=== PATIENT | male | born 1960 | race Caucasian/White ===

== ENCOUNTER 2018-05-31 01:42 | Inpatient (IN) | payer OTHER ==
[~2018-05-31] VITALS: Ht 167.6 cm; Wt 71.8 kg
[2018-05-31] MEDS ORDERED: IPRATRPIUM/ALBUTEROL 0.5/2.5MG 3 ML NEBU. NEB ONE (02:00)
--- NOTE | 2018-05-31 02:03 | PHYS DOC ---
Past Medical History Past Medical History: Anemia, CHF, Hypertension Smoking: Cigarettes, 1 Pack Per Day Alcohol Use: Rarely Drug Use: None Adult General Chief Complaint Chief Complaint: SHORTNESS OF BREATH HPI HPI Patient is a 58 year old male who presents with shortness of breath. This started approximately an hour prior to calling 911. 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 Patient recently was seen by his primary care physician in [place] who diagnosed him with congestive heart failure started him on diuretic as well as beta jocelyn. He was also noted to be anemic at that time and was started on iron supplementation. Patient was brought in by EMS after receiving breathing treatment.[] Review of Systems Review of Systems Constitutional: Denies fever or chills [] Eyes: Denies change in visual acuity, redness, or eye pain [] HENT: Denies nasal congestion or sore throat [] Respiratory: See history of present illness[] Cardiovascular: No chest pain or palpitations[] GI: Denies abdominal pain, nausea, vomiting, bloody stools or diarrhea [] : Denies dysuria or hematuria [] Musculoskeletal: Denies back pain or joint pain [] Integument: Denies rash or skin lesions [] Neurologic: Denies headache, focal weakness or sensory changes [] Endocrine: Denies polyuria or polydipsia [] All other systems were reviewed and found to be within normal limits, except as documented in this note. Current Medications Current Medications Current Medications Medications (Trade) Dose Ordered Sig/Lenny Start Time Stop Time Status Last Admin Dose Admin Albuterol/ Ipratropium (Duoneb) 3 ml 1X ONCE 05/31/18 02:00 05/31/18 02:12 DC 05/31/18 02:03 3 ML Aspirin (Children'S Aspirin) 324 mg 1X ONCE 05/31/18 03:30 05/31/18 03:31 DC 05/31/18 04:26 324 MG Furosemide (Lasix) 20 mg 1X ONCE 05/31/18 02:15 05/31/18 02:16 DC 05/31/18 03:14 20 MG Info (CONTRAST GIVEN -- Rx MONITORING) 1 each PRN DAILY PRN 05/31/18 04:00 06/02/18 03:59 Iohexol (Omnipaque 350 Mg/ml) 90 ml 1X ONCE 05/31/18 04:00 05/31/18 04:01 DC 05/31/18 04:08 90 ML Allergies Allergies Allergies Coded Allergies Type Severity Reaction Last Updated Verified No Known Drug Allergies 05/31/18 No Physical Exam Physical Exam Constitutional: Well developed, well nourished, no acute distress, non-toxic appearance. [] HENT: Normocephalic, atraumatic, bilateral external ears normal, oropharynx moist, no oral exudates, nose normal. [] Eyes: PERRLA, EOMI, conjunctiva normal, no discharge. [] Neck: Normal range of motion, no tenderness, supple, no stridor. [] Cardiovascular:Heart rate regular rhythm, no murmur [] Lungs & Thorax: Bilateral red sounds with diminished airflow[] Abdomen: Bowel sounds normal, soft, no tenderness, no masses, no pulsatile masses. Rectal exam performed showed no external hemorrhoids, brown stool that was sent for laboratory analysis [] Skin: Warm, dry, no erythema, no rash. [] Back: No tenderness, no CVA tenderness. [] Extremities: No tenderness, no cyanosis, no clubbing, ROM intact, pretibial edema bilaterally. [] Neurologic: Alert and oriented X 3, normal motor function, normal sensory function, no focal deficits noted. [] Psychologic: Affect normal, judgement normal, mood normal. [] Current Patient Data Vital Signs Vital Signs Date Time Temp Pulse Resp B/P (MAP) Pulse Ox O2 Delivery O2 Flow Rate FiO2 05/31/18 04:44 77 175/76 (109) 99 Nasal Cannula 4.0 05/31/18 03:46 97.5 97.5 05/31/18 03:17 16 Lab Values Laboratory Tests Test 05/31/18 02:07 05/31/18 02:40 Prothrombin Time 13.6 SEC (11.7-14.0) Prothrombin Time INR 1.1 (0.8-1.1) White Blood Count 10.1 x10^3/uL (4.0-11.0) Red Blood Count 4.13 x10^6/uL (4.30-5.70) L Hemoglobin 8.1 g/dL (13.0-17.5) L Hematocrit 27.7 % (39.0-53.0) L Mean Corpuscular Volume 67 fL (79-100) L Mean Corpuscular Hemoglobin 20 pg (25-35) L Mean Corpuscular Hemoglobin Concent 29 g/dL (31-37) L Red Cell Distribution Width 22.7 % (11.5-14.5) H Platelet Count 478 x10^3/uL (140-400) H Neutrophils (%) (Auto) 74 % (31-73) H Lymphocytes (%) (Auto) 15 % (24-48) L Monocytes (%) (Auto) 9 % (0-9) Eosinophils (%) (Auto) 1 % (0-3) Basophils (%) (Auto) 1 % (0-3) Neutrophils # (Auto) 7.4 x10^3uL (1.8-7.7) Lymphocytes # (Auto) 1.5 x10^3/uL (1.0-4.8) Monocytes # (Auto) 0.9 x10^3/uL (0.0-1.1) Eosinophils # (Auto) 0.1 x10^3/uL (0.0-0.7) Basophils # (Auto) 0.1 x10^3/uL (0.0-0.2) Platelet Estimate Pending D-Dimer (Mercy) 1.33 ug/mlFEU (0.00-0.50) H Sodium Level 142 mmol/L (136-145) Potassium Level 3.8 mmol/L (3.5-5.1) Chloride Level 106 mmol/L (98-107) Carbon Dioxide Level 25 mmol/L (21-32) Anion Gap 11 (6-14) Blood Urea Nitrogen 13 mg/dL (8-26) Creatinine 1.0 mg/dL (0.7-1.3) Estimated GFR (Cockcroft-Gault) 77.0 BUN/Creatinine Ratio 13 (6-20) Glucose Level 114 mg/dL (70-99) H Calcium Level 9.8 mg/dL (8.5-10.1) Total Bilirubin 0.2 mg/dL (0.2-1.0) Aspartate Amino Transferase (AST) 18 U/L (15-37) Alanine Aminotransferase (ALT) 25 U/L (16-63) Alkaline Phosphatase 73 U/L (46-116) Troponin I Quantitative 0.088 ng/mL (0.000-0.055) BB-Ciw-D-Type Natriuretic Peptide 1651 pg/mL (0-124) H Total Protein 7.5 g/dL (6.4-8.2) Albumin 3.5 g/dL (3.4-5.0) Albumin/Globulin Ratio 0.9 (1.0-1.7) L Laboratory Tests 05/31/18 02:40 Laboratory Tests 05/31/18 02:40 EKG EKG EKG shows a sinus rhythm at 76 bpm, left axis deviation, QTC of 473 ms, right bundle branch block. No ST elevations. No old EKG available for comparison. This was interpreted by me at 0 233[] Radiology/Procedures Radiology/Procedures Chest x-ray shows increased markings consistent with congestive heart failure, no infiltrate, some blunting of right greater than left costophrenic angle, no pneumothorax[] Course & Med Decision Making Course & Med Decision Making Pertinent Labs and Imaging studies reviewed. (See chart for details) ED course: Patient arrived, was placed in bed, in tolerated exam well. He was given a breathing treatment which didn't improve his oxygenation however he was still requiring supplemental oxygen. 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 He was additionally given aspirin. Discussion with the patient about need for blood transfusion given his anemia along with the elevated troponin, patient was refusing the blood transfusion noting that he had a follow -up appointment with his primary care physician on June 08, 2018.[] Dragon Disclaimer Dragon Disclaimer This electronic medical record was generated, in whole or in part, using a voice recognition dictation system. Departure Departure Impression: Primary Impression: Congestive heart failure Additional Impressions: COPD (chronic obstructive pulmonary disease) Non-STEMI (non-ST elevated myocardial infarction) Anemia Disposition: ADMITTED INPATIENT Admitting Physician: Other Condition: IMPROVED Problem Qualifiers Primary Impression: Congestive heart failure Heart failure type: unspecified Heart failure chronicity: unspecified Qualified Codes: I50.9 - Heart failure, unspecified Additional Impressions: COPD (chronic obstructive pulmonary disease) COPD type: unspecified COPD Qualified Codes: J44.9 - Chronic obstructive pulmonary disease, unspecified Anemia Anemia type: unspecified type Qualified Codes: D64.9 - Anemia, unspecified MASHA THOMAS DO May 31, 2018 02:03
[2018-05-31] MEDS ORDERED: FUROSEMIDE 20 MG/2 ML VIAL. IVP ONE (02:15)
[2018-05-31 02:53] LABS: BASO # 0.1 x10^3/uL (0.0-0.2); BASO % 1 % (0-3); EOS # 0.1 x10^3/uL (0.0-0.7); EOS % 1 % (0-3); HEMATOCRIT 27.7 % (39.0-53.0); HEMOGLOBIN 8.1 g/dL (13.0-17.5); LYMPH # 1.5 x10^3/uL (1.0-4.8); LYMPH % 15 % (24-48); MEAN CORPUSCULAR HEMOGLOBIN 20 pg (25-35); MEAN CORPUSCULAR HGB CONC 29 g/dL (31-37); MEAN CORPUSCULAR VOLUME 67 fL (79-100); MONO # 0.9 x10^3/uL (0.0-1.1); MONO % 9 % (0-9); NEUT # 7.4 x10^3uL (1.8-7.7); NEUT % 74 % (31-73); PLATELET COUNT 478 x10^3/uL (140-400); RED BLOOD COUNT 4.13 x10^6/uL (4.30-5.70); RED CELL DISTRIBUTION WIDTH 22.7 % (11.5-14.5); WHITE BLOOD COUNT 10.1 x10^3/uL (4.0-11.0)
[2018-05-31 03:05] LABS: CALCIUM 9.8 mg/dL (8.5-10.1); POTASSIUM 3.8 mmol/L (3.5-5.1)
[2018-05-31 03:11] LABS: ALBUMIN 3.5 g/dL (3.4-5.0); ALBUMIN/GLOBULIN RATIO 0.9 (1.0-1.7); TOTAL BILIRUBIN 0.2 mg/dL (0.2-1.0); TOTAL PROTEIN 7.5 g/dL (6.4-8.2)
[2018-05-31] MEDS ORDERED: ASPIRIN CHEWABLE 81 MG TABLET. PO ONE (03:30)
[2018-05-31 03:44] LABS: PROTHROMBIN TIME PATIENT 13.6 SEC (11.7-14.0)
[2018-05-31] MEDS ORDERED: IOHEXOL 350 MG/ML 100 ML VIAL. IV ONE (04:00)
[2018-05-31] MEDS ORDERED: CONTRAST GIVEN. MC PRN (04:00)
[2018-05-31] MEDS ORDERED: METO-239 PO (04:34)
[2018-05-31] MEDS ORDERED: LISI-334 PO (04:34)
[2018-05-31] MEDS ORDERED: HYDR12.58 PO (04:34)
[2018-05-31] MEDS ORDERED: ESOM20CA PO (04:34)
[2018-05-31 05:06] LABS: FECAL OB PT NEGATIVE (NEG)
--- NOTE | 2018-05-31 05:11 | RAD ---
CTA Chest with contrast: Clinical History: Elevated d-dimer and Shortness of breath. Axial helical images of the chest were obtained after the administration of 90 cc of IV Omni 350 and timed appropriately for a pulmonary arterial study. Conventional axial reconstruction was performed in addition to coronal, sagittal and bilateral oblique MIP (maximum intensity projection). This study was ordered to detect possible pulmonary embolism. There are no filling defects to suggest pulmonary embolism. There is patchy opacities in the lung bases posteriorly and there is mild perihilar opacities. There are multiple small hilar lymph nodes bilaterally. The thoracic aorta appears normal. There is a moderate to large hiatal hernia. Impression: 1. No evidence of pulmonary embolism. 2. Mild bilateral infiltrates could be discoid atelectasis or pneumonia. 3. Mild hilar lymphadenopathy likely reactive. PQRS Compliance Statement: One or more of the following individualized dose reduction techniques were utilized for this examination: 1. Automated exposure control 2. Adjustment of the mA and/or kV according to patient size 3. Use of iterative reconstruction technique Electronically signed by: Jairo Cordon III, MD (05/31/2018 5:06 AM) [id number]
[2018-05-31] MEDS ORDERED: ONDANSETRON PF 4 MG/2 ML VIAL. IV PRN (05:30)
[2018-05-31] MEDS ORDERED: NITROGLYCERIN SUBLINGUAL 0.4 MG BOTTLE OF 25. SL PRN (05:30)
[2018-05-31] MEDS ORDERED: ACETAMINOPHEN 325 MG TABLET. PO PRN (05:30)
[2018-05-31 05:52] LABS: PLT ESTIMATE INCREASED (ADEQUATE)
[2018-05-31 05:53] LABS: MICROCYTOSIS MOD
[2018-05-31 05:54] LABS: SPHEROCYTES FEW
[2018-05-31 05:55] LABS: STOMATOCYTES OCC
[2018-05-31 06:30] VITALS: BP 161/80
[2018-05-31] MEDS ORDERED: METO50TA6 PO (06:59)
--- NOTE | 2018-05-31 07:24 | EKG ---
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
--- NOTE | 2018-05-31 07:56 | PDOC1 ---
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 This started approximately an hour prior to calling 911. Patient recently was seen by his primary care physician in [place] who diagnosed him with congestive heart failure started him on diuretic as well as beta jocelyn. He was also treated for pneumonia. He was also noted to be anemic at that time and was started on iron supplementation which caused him severe GI discomfort, so he has since stopped. Patient was brought in by EMS after receiving breathing treatment. D dimer was elevated, underwent a CTPA in ED showing no evidence of pulmonary embolism, mild bilateral infiltrates could be discoid atelectasis or pneumonia, and mild hilar lymphadenopathy likely reactive. Labs significant for Hb of 8.1, BNP 1651, Trop 0.088. Blood pressure 170/72. He was type and screened and admitted for likely new onset CHF. Past Medical History Cardiovascular: HTN Pulmonary: No pertinent hx GI: No pertinent hx Heme/Onc: Anemia NOS Hepatobiliary: No pertinent hx Psych: No pertinent hx Rheumatologic: No pertinent hx Infectious disease: No pertinent hx ENT: No pertinent hx Renal/: No pertinent hx Endocrine: No pertinent hx Dermatology: No pertinent hx Family History Family History: Coronary Artery Disease, Heart Disease, High Cholestrol, Hypertension Family History: Parent (Mother - CAD s/p CABG, sister - CAD) Social History Smoke: No ALCOHOL: none Drugs: None Current Problem List Problem List Problems Medical Problems: (1) Anemia Status: Acute (2) Congestive heart failure Status: Acute (3) COPD (chronic obstructive pulmonary disease) Status: Acute (4) Non-STEMI (non-ST elevated myocardial infarction) Status: Acute Current Medications Current Medications Current Medications Albuterol/ Ipratropium (Duoneb) 3 ml 1X ONCE NEB Last administered on at 02:03; Start 05/31/18 at 02:00; Stop 05/31/18 at 02:12; Status DC Furosemide (Lasix) 20 mg 1X ONCE IVP Last administered on 05/31/18at 03:14; Start 05/31/18 at 02:15; Stop 05/31/18 at 02:16; Status DC Aspirin (Children'S Aspirin) 324 mg 1X ONCE PO Last administered on 05/31/18at 04:26; Start 05/31/18 at 03:30; Stop 05/31/18 at 03:31; Status DC Iohexol (Omnipaque 350 Mg/ml) 90 ml 1X ONCE IV Last administered on 05/31/18at 04:08; Start 05/31/18 at 04:00; Stop 05/31/18 at 04:01; Status DC Info (CONTRAST GIVEN -- Rx MONITORING) 1 each PRN DAILY PRN MC SEE COMMENTS; Start 05/31/18 at 04:00; Stop 06/02/18 at 03:59 Ondansetron HCl (Zofran) 4 mg PRN Q8HRS PRN IV NAUSEA/VOMITING; Start 05/31/18 at 05:30; Stop 06/01/18 at 05:29 Acetaminophen (Tylenol) 650 mg PRN Q4HRS PRN PO FEVER; Start 05/31/18 at 05:30 ; Stop 06/01/18 at 05:29 Nitroglycerin (Nitrostat) 0.4 mg PRN Q5MIN PRN SL CHEST PAIN; Start 05/31/18 at 05:30; Stop 06/01/18 at 05:29 Active Scripts Active Reported Metoprolol Tartrate 50 Mg Tablet 1 Tab PO DAILY Lisinopril 20 Mg Tablet 1 Tab PO DAILY Nexium Capsule (Esomeprazole Magnesium) 20 Mg Capsule.dr 20 Mg PO BID Hydrochlorothiazide Tablet (Hydrochlorothiazide) 12.5 Mg Tablet 12.5 Mg PO DAILY Allergies Allergies: Coded Allergies: No Known Drug Allergies (Unverified , 05/31/18) ROS General: YES: Fatigue, Malaise; No: Chills, Night Sweats, Appetite, Other PSYCHOLOGICAL ROS: No: Anxiety, Behavioral Disorder, Concentration difficultie , Decreased libido, Depression, Disorientation, Hallucinations, Hostility, Irritablity, Memory difficulties, Mood Swings, Obsessive thoughts, Physical abuse, Sexual abuse, Sleep disturbances, Suicidal ideation, Other Eyes: No Blurry vision, No Decreased vision, No Double vision, No Dry eyes, No Excessive tearing, No Eye Pain, No Itchy Eyes, No Loss of vision, No Photophobia , No Scotomata, No Uses contacts, No Uses glasses, No Other HEENT: No: Heacaches, Visual Changes, Hearing change, Nasal congestion, Nasal discharge, Oral lesions, Sinus pain, Sore Throat, Epistaxis, Sneezing, Snoring, Tinnitus, Vertigo, Vocal changes, Other ALLERGY AND IMMUNOLOGY: No: Hives, Insect Bite Sensitivity, Itchy/Watery Eyes, Nasal Congestion, Post Nasal Drip, Seasonal Allergies, Other Hematological and Lymphatic: No: Bleeding Problems, Blood Clots, Blood Transfusions, Brusing, Night Sweats, Pallor, Swollen Lymph Nodes, Other ENDOCRINE: No: Breast Changes, Galactorrhea, Hair Pattern Changes, Hot Flashes , Malaise/lethargy, Mood Swings, Palpitations, Polydipsia/polyuria, Skin Changes , Temperature Intolerance, Unexpected Weight Changes, Other Breast: No New/Changing Breast Lumps, No Nipple changes, No Nipple discharge, No Other Respiratory: YES: Cough, Shortness of breath; No: Hemoptysis, Orthopnea, Pleuritic Pain, SOB with excertion, Sputum Changes , Stridor, Tachypnea, Wheezing, Other Cardiovascular: yes Chest Pain, yes Orthopnea, yes Paroxysmal Noc. Dyspnea, yes Edema; No Palpitations, No Lt Headedness, No Other Gastrointestinal: No Nausea, No Vomiting, No Abdominal Pain, No Diarrhea, No Constipation, No Melena, No Hematochezia, No Other Genitourinary: No Dysuria, No Frequency, No Incontinence, No Hematuria, No Retention, No Discharge, No Urgency, No Pain, No Flank Pain, No Other, No , No , No , No , No , No , No Musculoskeletal: No Gait Disturbance, No Joint Pain, No Joint Stiffness, No Joint Swelling, No Muscle Pain, No Muscular Weakness, No Pain In:, No Swelling In:, No Other Neurological: No Behavorial Changes, No Bowel/Bladder ControlChng, No Confusion , No Dizziness, No Gait Disturbance, No Headaches, No Impaired Coord/balance, No Memory Loss, No Numbness/Tingling, No Seizures, No Speech Problems, No Tremors, No Visual Changes, No Weakness, No Other Skin: No Dry Skin, No Eczema, No Hair Changes, No Lumps, No Mole Changes, No Mottling, No Nail Changes, No Pruritus, No Rash, No Skin Lesion Changes, No Other, No Acne Physical Exam General: Alert, Oriented X3, Cooperative, No acute distress HEENT: Atraumatic, PERRLA, EOMI, Mucous membr. moist/pink Lungs: Other (Bibasilar crackles) Heart: S1S2, RRR, no gallops, no murmurs Abdomen: Normal bowel sounds, Soft, No tenderness, No hepatosplenomegaly, No masses Rectal Exam: not examined Extremities: No clubbing, No cyanosis, No edema, Normal pulses, No tenderness/ swelling Skin: No rashes, No breakdown, No significant lesion Neuro: Normal gait, Normal speech, Strength at 5/5 X4 ext, Normal tone, Sensation intact, Cranial nerves 3-12 NL, Reflexes 2+ Psych/Mental Status: Mental status NL, Mood NL Vitals Vitals Vital Signs Date Time Temp Pulse Resp B/P (MAP) Pulse Ox O2 Delivery O2 Flow Rate FiO2 05/31/18 06:20 Nasal Cannula 4.0 05/31/18 05:50 75 165/64 (97) 99 05/31/18 03:46 97.5 97.5 05/31/18 03:17 16 Labs Labs Laboratory Tests Test 05/31/18 02:07 05/31/18 02:40 05/31/18 04:40 Prothrombin Time 13.6 SEC (11.7-14.0) Prothromb Time International Ratio 1.1 (0.8-1.1) White Blood Count 10.1 x10^3/uL (4.0-11.0) Red Blood Count 4.13 x10^6/uL (4.30-5.70) Hemoglobin 8.1 g/dL (13.0-17.5) Hematocrit 27.7 % (39.0-53.0) Mean Corpuscular Volume 67 fL (79-100) Mean Corpuscular Hemoglobin 20 pg (25-35) Mean Corpuscular Hemoglobin Concent 29 g/dL (31-37) Red Cell Distribution Width 22.7 % (11.5-14.5) Platelet Count 478 x10^3/uL (140-400) Neutrophils (%) (Auto) 74 % (31-73) Lymphocytes (%) (Auto) 15 % (24-48) Monocytes (%) (Auto) 9 % (0-9) Eosinophils (%) (Auto) 1 % (0-3) Basophils (%) (Auto) 1 % (0-3) Neutrophils # (Auto) 7.4 x10^3uL (1.8-7.7) Lymphocytes # (Auto) 1.5 x10^3/uL (1.0-4.8) Monocytes # (Auto) 0.9 x10^3/uL (0.0-1.1) Eosinophils # (Auto) 0.1 x10^3/uL (0.0-0.7) Basophils # (Auto) 0.1 x10^3/uL (0.0-0.2) Platelet Estimate Increased (ADEQUATE) Large Platelets Occ Microcytosis Mod Macrocytosis Slight Spherocytes Few Stomatocytes Occ D-Dimer ([facility]cy) 1.33 ug/mlFEU (0.00-0.50) Sodium Level 142 mmol/L (136-145) Potassium Level 3.8 mmol/L (3.5-5.1) Chloride Level 106 mmol/L (98-107) Carbon Dioxide Level 25 mmol/L (21-32) Anion Gap 11 (6-14) Blood Urea Nitrogen 13 mg/dL (8-26) Creatinine 1.0 mg/dL (0.7-1.3) Estimated GFR (Cockcroft-Gault) 77.0 BUN/Creatinine Ratio 13 (6-20) Glucose Level 114 mg/dL (70-99) Calcium Level 9.8 mg/dL (8.5-10.1) Total Bilirubin 0.2 mg/dL (0.2-1.0) Aspartate Amino Transf (AST/SGOT) 18 U/L (15-37) Alanine Aminotransferase (ALT/SGPT) 25 U/L (16-63) Alkaline Phosphatase 73 U/L (46-116) Troponin I Quantitative 0.088 ng/mL (0.000-0.055) GF-Zxt-H-Type Natriuretic Peptide 1651 pg/mL (0-124) Total Protein 7.5 g/dL (6.4-8.2) Albumin 3.5 g/dL (3.4-5.0) Albumin/Globulin Ratio 0.9 (1.0-1.7) Stool Occult Blood Negative (NEG) Laboratory Tests Test 05/31/18 02:07 05/31/18 02:40 05/31/18 04:40 Prothrombin Time 13.6 SEC (11.7-14.0) Prothromb Time International Ratio 1.1 (0.8-1.1) White Blood Count 10.1 x10^3/uL (4.0-11.0) Red Blood Count 4.13 x10^6/uL (4.30-5.70) Hemoglobin 8.1 g/dL (13.0-17.5) Hematocrit 27.7 % (39.0-53.0) Mean Corpuscular Volume 67 fL (79-100) Mean Corpuscular Hemoglobin 20 pg (25-35) Mean Corpuscular Hemoglobin Concent 29 g/dL (31-37) Red Cell Distribution Width 22.7 % (11.5-14.5) Platelet Count 478 x10^3/uL (140-400) Neutrophils (%) (Auto) 74 % (31-73) Lymphocytes (%) (Auto) 15 % (24-48) Monocytes (%) (Auto) 9 % (0-9) Eosinophils (%) (Auto) 1 % (0-3) Basophils (%) (Auto) 1 % (0-3) Neutrophils # (Auto) 7.4 x10^3uL (1.8-7.7) Lymphocytes # (Auto) 1.5 x10^3/uL (1.0-4.8) Monocytes # (Auto) 0.9 x10^3/uL (0.0-1.1) Eosinophils # (Auto) 0.1 x10^3/uL (0.0-0.7) Basophils # (Auto) 0.1 x10^3/uL (0.0-0.2) Platelet Estimate Increased (ADEQUATE) Large Platelets Occ Microcytosis Mod Macrocytosis Slight Spherocytes Few Stomatocytes Occ D-Dimer (Mercy) 1.33 ug/mlFEU (0.00-0.50) Sodium Level 142 mmol/L (136-145) Potassium Level 3.8 mmol/L (3.5-5.1) Chloride Level 106 mmol/L (98-107) Carbon Dioxide Level 25 mmol/L (21-32) Anion Gap 11 (6-14) Blood Urea Nitrogen 13 mg/dL (8-26) Creatinine 1.0 mg/dL (0.7-1.3) Estimated GFR (Cockcroft-Gault) 77.0 BUN/Creatinine Ratio 13 (6-20) Glucose Level 114 mg/dL (70-99) Calcium Level 9.8 mg/dL (8.5-10.1) Total Bilirubin 0.2 mg/dL (0.2-1.0) Aspartate Amino Transf (AST/SGOT) 18 U/L (15-37) Alanine Aminotransferase (ALT/SGPT) 25 U/L (16-63) Alkaline Phosphatase 73 U/L (46-116) Troponin I Quantitative 0.088 ng/mL (0.000-0.055) VI-Bcu-I-Type Natriuretic Peptide 1651 pg/mL (0-124) Total Protein 7.5 g/dL (6.4-8.2) Albumin 3.5 g/dL (3.4-5.0) Albumin/Globulin Ratio 0.9 (1.0-1.7) Stool Occult Blood Negative (NEG) Images Images CXR - no formal read CTPA - 1. No evidence of pulmonary embolism. 2. Mild bilateral infiltrates could be discoid atelectasis or pneumonia. 3. Mild hilar lymphadenopathy likely reactive. VTE Prophylaxis Ordered VTE Prophylaxis Devices: Yes VTE Pharmacological Prophylaxi: No Assessment/Plan Assessment/Plan A/P: Shortness of breath - likely from pulmonary edema, will diurese. Echo. Consult cardiology. Negative for PE Anemia - this appears acute. Check iron studies, type and screen. May be dilutional from fluid overload as well. Venofer x1. Stool occult was negative. Will check TSH, LDH Elevated fasting glucose - will screen for DM HTN - will cont lisinopril. CHF - acute diastolic chf by history this was just clinically diagnosed. Has stress testing years ago, but need ischemic w/u. Denies ETOH use or cocaine/ amphetamine use. Strong family h/o CAD. Diurese, ECHO, consult cardiology. His BB was metoprolol tartrate. I will not restart as this is not the correct treatment for CHF, when he is out of acute phase will start either toprol XL or Carvedilol. Statin, ASA, BEN as well. Elevated troponin - likely demand with acute CHF and anemia, however, he needs ischemic w/u FEN - Cardiac diet if ok with cardiology PPX - SCDs, heparin FULL CODE CVC for new onset CHF complicated by anemia, will be inpatient at least 2 midnights. ROMULO CASTRO MD May 31, 2018 07:56
--- NOTE | 2018-05-31 08:08 | RAD ---
Indication:Shortness of breath TECHNIQUE:Portable AP chest X-ray COMPARISON: None FINDINGS: Heart is top normal in size. Lungs are hyperinflated. Coarse interstitial opacities are seen. No focal consolidation. Moderate-sized sliding hiatal hernia. No pneumothorax or pleural effusion. Visualized bony thorax within normal limits. IMPRESSION: 1. Findings of COPD. Superimposed atypical/viral infection or chronic interstitial changes. 2. Moderate sliding hiatal hernia.w Electronically signed by: Dylan Faye DO (05/31/2018 8:03 AM) [facility]
[2018-05-31 10:00] VITALS: BP 147/71
[2018-05-31 11:43] LABS: LACTATE DEHYDROGENASE 246 U/L (85-227)
[2018-05-31 12:00] VITALS: BP 155/70
[2018-05-31] MEDS ORDERED: IRON SUCROSE COMPLEX 200 MG in IV NORMAL SALINE 100ML 100 ML IV ONE (12:00)
[2018-05-31] MEDS: LISINOPRIL 20 MG TABLET PO SCH (12:13)
--- NOTE | 2018-05-31 14:54 | PDOC2 ---
CONSULT Date of Consult Date of Consult DATE: 05/31/18 TIME: 14:43 Reason for Consult Reason for Consult: Shortness of breath Referring Physician Referring Physician: Dr. Escobar Identification/Chief Complaint Chief Complaint Shortness of breath Source Source: Chart review, Patient History of Present Illness Reason for Visit: The patient is a pleasant 58-year-old male reports episodes of shortness of breath over 2-3 hours prior to being seen in the emergency room last night. Patient's workup has included lab tests that showed anemia with a hemoglobin hematocrit of 8.1 and 27.7. His BNP was elevated at 1651 and a troponin minimally elevated at 0.097. After treatment overnight the patient is feeling better but is still somewhat short of breath. He denies chest pain, dizziness or lightheadedness. 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 Patient's d-dimer was elevated and he underwent a CTA of the chest that showed no evidence of pulmonary emboli but did show mild bilateral infiltrates. Initial blood pressure was elevated at 170/76. EKG showed no acute ischemic changes. Patient had previously been seen at his home in [place] 2-3 weeks ago and was treated for anemia, heart failure and possible pneumonia. Past Medical History Cardiovascular: HTN Pulmonary: No pertinent hx GI: No pertinent hx Heme/Onc: Anemia NOS Hepatobiliary: No pertinent hx Psych: No pertinent hx Rheumatologic: No pertinent hx Infectious disease: No pertinent hx ENT: No pertinent hx Renal/: No pertinent hx Endocrine: No pertinent hx Dermatology: No pertinent hx Past Surgical History Past Surgical History: No pertinent history Family History Family History: Coronary Artery Disease, Heart Disease, High Cholestrol, Hypertension Social History Social History: Parent (Mother - CAD s/p CABG, sister - CAD) <1 pack per day ALCOHOL: rare Drugs: None Current Problem List Problem List Problems Medical Problems: (1) Anemia Status: Acute (2) Congestive heart failure Status: Acute (3) COPD (chronic obstructive pulmonary disease) Status: Acute (4) Non-STEMI (non-ST elevated myocardial infarction) Status: Acute Current Medications Current Medications Current Medications Albuterol/ Ipratropium (Duoneb) 3 ml 1X ONCE NEB Last administered on at 02:03; Start 05/31/18 at 02:00; Stop 05/31/18 at 02:12; Status DC Furosemide (Lasix) 20 mg 1X ONCE IVP Last administered on 05/31/18at 03:14; Start 05/31/18 at 02:15; Stop 05/31/18 at 02:16; Status DC Aspirin (Children'S Aspirin) 324 mg 1X ONCE PO Last administered on 05/31/18at 04:26; Start 05/31/18 at 03:30; Stop 05/31/18 at 03:31; Status DC Iohexol (Omnipaque 350 Mg/ml) 90 ml 1X ONCE IV Last administered on 05/31/18at 04:08; Start 05/31/18 at 04:00; Stop 05/31/18 at 04:01; Status DC Info (CONTRAST GIVEN -- Rx MONITORING) 1 each PRN DAILY PRN MC SEE COMMENTS; Start 05/31/18 at 04:00; Stop 06/02/18 at 03:59 Ondansetron HCl (Zofran) 4 mg PRN Q8HRS PRN IV NAUSEA/VOMITING; Start 05/31/18 at 05:30; Stop 06/01/18 at 05:29 Acetaminophen (Tylenol) 650 mg PRN Q4HRS PRN PO FEVER; Start 05/31/18 at 05:30 ; Stop 06/01/18 at 05:29 Nitroglycerin (Nitrostat) 0.4 mg PRN Q5MIN PRN SL CHEST PAIN; Start 05/31/18 at 05:30; Stop 06/01/18 at 05:29 Lisinopril (Prinivil) 20 mg DAILY PO Last administered on 05/31/18at 12:13; Start 05/31/18 at 12:00 Pantoprazole Sodium (Protonix) 40 mg BIDAC PO ; Start 05/31/18 at 16:30 Furosemide (Lasix) 20 mg BID92 IVP ; Start 05/31/18 at 14:00 Iron Sucrose 200 mg/Sodium Chloride 110 ml @ 55 mls/hr 1X ONCE IV Last administered on 05/31/18at 11:38; Start 05/31/18 at 12:00; Stop 05/31/18 at 13:59 ; Status DC Active Scripts Active Reported Metoprolol Tartrate 50 Mg Tablet 1 Tab PO DAILY Lisinopril 20 Mg Tablet 1 Tab PO DAILY Nexium Capsule (Esomeprazole Magnesium) 20 Mg Capsule.dr 20 Mg PO BID Hydrochlorothiazide Tablet (Hydrochlorothiazide) 12.5 Mg Tablet 12.5 Mg PO DAILY Allergies Allergies: Coded Allergies: No Known Drug Allergies (Unverified , 05/31/18) ROS General: YES: Fatigue Respiratory: YES: Shortness of breath, SOB with excertion Physical Exam General: mild distress HEENT: Atraumatic Lungs: Other (decreased breath sounds) Heart: Regular rate Abdomen: Normal bowel sounds Vitals VITALS Vital Signs Date Time Temp Pulse Resp B/P (MAP) Pulse Ox O2 Delivery O2 Flow Rate FiO2 05/31/18 12:13 87 155/70 05/31/18 12:00 97.8 95 Nasal Cannula 2.0 97.8 05/31/18 03:17 16 Labs Labs Laboratory Tests Test 05/31/18 02:07 05/31/18 02:40 05/31/18 04:40 05/31/18 09:50 Prothrombin Time 13.6 SEC (11.7-14.0) Prothromb Time International Ratio 1.1 (0.8-1.1) White Blood Count 10.1 x10^3/uL (4.0-11.0) Red Blood Count 4.13 x10^6/uL (4.30-5.70) Hemoglobin 8.1 g/dL (13.0-17.5) Hematocrit 27.7 % (39.0-53.0) Mean Corpuscular Volume 67 fL (79-100) Mean Corpuscular Hemoglobin 20 pg (25-35) Mean Corpuscular Hemoglobin Concent 29 g/dL (31-37) Red Cell Distribution Width 22.7 % (11.5-14.5) Platelet Count 478 x10^3/uL (140-400) Neutrophils (%) (Auto) 74 % (31-73) Lymphocytes (%) (Auto) 15 % (24-48) Monocytes (%) (Auto) 9 % (0-9) Eosinophils (%) (Auto) 1 % (0-3) Basophils (%) (Auto) 1 % (0-3) Neutrophils # (Auto) 7.4 x10^3uL (1.8-7.7) Lymphocytes # (Auto) 1.5 x10^3/uL (1.0-4.8) Monocytes # (Auto) 0.9 x10^3/uL (0.0-1.1) Eosinophils # (Auto) 0.1 x10^3/uL (0.0-0.7) Basophils # (Auto) 0.1 x10^3/uL (0.0-0.2) Platelet Estimate Increased (ADEQUATE) Large Platelets Occ Microcytosis Mod Macrocytosis Slight Spherocytes Few Stomatocytes Occ D-Dimer ([facility]) 1.33 ug/mlFEU (0.00-0.50) Sodium Level 142 mmol/L (136-145) Potassium Level 3.8 mmol/L (3.5-5.1) Chloride Level 106 mmol/L (98-107) Carbon Dioxide Level 25 mmol/L (21-32) Anion Gap 11 (6-14) Blood Urea Nitrogen 13 mg/dL (8-26) Creatinine 1.0 mg/dL (0.7-1.3) Estimated GFR (Cockcroft-Gault) 77.0 BUN/Creatinine Ratio 13 (6-20) Glucose Level 114 mg/dL (70-99) Calcium Level 9.8 mg/dL (8.5-10.1) Total Bilirubin 0.2 mg/dL (0.2-1.0) Aspartate Amino Transf (AST/SGOT) 18 U/L (15-37) Alanine Aminotransferase (ALT/SGPT) 25 U/L (16-63) Alkaline Phosphatase 73 U/L (46-116) Troponin I Quantitative 0.088 ng/mL (0.000-0.055) 0.095 ng/mL (0.000-0.055) HV-Lfp-M-Type Natriuretic Peptide 1651 pg/mL (0-124) Total Protein 7.5 g/dL (6.4-8.2) Albumin 3.5 g/dL (3.4-5.0) Albumin/Globulin Ratio 0.9 (1.0-1.7) Stool Occult Blood Negative (NEG) Reticulocyte Count (auto) 2.0 % (0.5-2.5) Iron Level 15 ug/dL (65-175) Total Iron Binding Capacity 273 ug/dL (250-450) Iron Saturation 5 % (15-34) Ferritin 23 ng/mL (26-388) Lactate Dehydrogenase 246 U/L (85-227) Thyroid Stimulating Hormone (TSH) 1.120 uIU/mL (0.358-3.74) Test 05/31/18 11:13 Troponin I Quantitative 0.097 ng/mL (0.000-0.055) Laboratory Tests Test 05/31/18 02:07 05/31/18 02:40 05/31/18 04:40 05/31/18 09:50 Prothrombin Time 13.6 SEC (11.7-14.0) Prothromb Time International Ratio 1.1 (0.8-1.1) White Blood Count 10.1 x10^3/uL (4.0-11.0) Red Blood Count 4.13 x10^6/uL (4.30-5.70) Hemoglobin 8.1 g/dL (13.0-17.5) Hematocrit 27.7 % (39.0-53.0) Mean Corpuscular Volume 67 fL (79-100) Mean Corpuscular Hemoglobin 20 pg (25-35) Mean Corpuscular Hemoglobin Concent 29 g/dL (31-37) Red Cell Distribution Width 22.7 % (11.5-14.5) Platelet Count 478 x10^3/uL (140-400) Neutrophils (%) (Auto) 74 % (31-73) Lymphocytes (%) (Auto) 15 % (24-48) Monocytes (%) (Auto) 9 % (0-9) Eosinophils (%) (Auto) 1 % (0-3) Basophils (%) (Auto) 1 % (0-3) Neutrophils # (Auto) 7.4 x10^3uL (1.8-7.7) Lymphocytes # (Auto) 1.5 x10^3/uL (1.0-4.8) Monocytes # (Auto) 0.9 x10^3/uL (0.0-1.1) Eosinophils # (Auto) 0.1 x10^3/uL (0.0-0.7) Basophils # (Auto) 0.1 x10^3/uL (0.0-0.2) Platelet Estimate Increased (ADEQUATE) Large Platelets Occ Microcytosis Mod Macrocytosis Slight Spherocytes Few Stomatocytes Occ D-Dimer ([facility]cy) 1.33 ug/mlFEU (0.00-0.50) Sodium Level 142 mmol/L (136-145) Potassium Level 3.8 mmol/L (3.5-5.1) Chloride Level 106 mmol/L (98-107) Carbon Dioxide Level 25 mmol/L (21-32) Anion Gap 11 (6-14) Blood Urea Nitrogen 13 mg/dL (8-26) Creatinine 1.0 mg/dL (0.7-1.3) Estimated GFR (Cockcroft-Gault) 77.0 BUN/Creatinine Ratio 13 (6-20) Glucose Level 114 mg/dL (70-99) Calcium Level 9.8 mg/dL (8.5-10.1) Total Bilirubin 0.2 mg/dL (0.2-1.0) Aspartate Amino Transf (AST/SGOT) 18 U/L (15-37) Alanine Aminotransferase (ALT/SGPT) 25 U/L (16-63) Alkaline Phosphatase 73 U/L (46-116) Troponin I Quantitative 0.088 ng/mL (0.000-0.055) 0.095 ng/mL (0.000-0.055) BW-Vzy-Q-Type Natriuretic Peptide 1651 pg/mL (0-124) Total Protein 7.5 g/dL (6.4-8.2) Albumin 3.5 g/dL (3.4-5.0) Albumin/Globulin Ratio 0.9 (1.0-1.7) Stool Occult Blood Negative (NEG) Reticulocyte Count (auto) 2.0 % (0.5-2.5) Iron Level 15 ug/dL (65-175) Total Iron Binding Capacity 273 ug/dL (250-450) Iron Saturation 5 % (15-34) Ferritin 23 ng/mL (26-388) Lactate Dehydrogenase 246 U/L (85-227) Thyroid Stimulating Hormone (TSH) 1.120 uIU/mL (0.358-3.74) Test 05/31/18 11:13 Troponin I Quantitative 0.097 ng/mL (0.000-0.055) Images Images Chest CTA shows no pulmonary emboli but shows mild bilateral infiltrates. Assessment/Plan Assessment/Plan 1. Acute on chronic heart failure. Patient is improved with diuresis. BNP was elevated and the patient apparently was diagnosed as having heart failure at his home in [place] 2-3 weeks ago. Will continue on diuresis and baseline medications for heart failure. Patient reportedly had no echocardiogram and will be check an echocardiogram for LV function. 2. Hypertension. Initially significantly elevated. Improved on medications. We' ll continue to monitor and adjust medications as needed. 3. COPD. Patient continues to smoke approximately a pack of cigarettes a day. We 'll continue medical treatment as above. 4. Anemia. Hemoglobin and hematocrit of 8.1 and 27.7. Being worked up by the primary service. 5. Minimally elevated troponin at 0.097. We'll monitor and recheck EKG. Mild elevation is probably multifactorial including his heart failure, hypertension and anemia. Patient will require an ischemic workup and will discuss with him whether he wishes it here or in [place] if he remains stable. Thank you for allowing us to participate in the care of your patient. MIKE FLORENCE MD May 31, 2018 14:54
[2018-05-31 15:00] VITALS: BP 146/65
[2018-05-31] MEDS: FUROSEMIDE 20 MG/2 ML VIAL. IVP SCH (15:22)
[2018-05-31] MEDS: PANTOPRAZOLE 40 MG TABLET.DR. PO SCH (15:22)
[2018-05-31 19:00] VITALS: BP 104/55
[2018-05-31 22:42] VITALS: BP 126/55
[2018-06-01] VITALS (9 sets, daily range): BP systolic 113–145; BP diastolic 37–80
[2018-06-01 00:13] LABS: HEMOGLOBIN A1C 5.1 % (4.8-5.6)
[2018-06-01 05:04] LABS: BASO # 0.1 x10^3/uL (0.0-0.2); BASO % 2 % (0-3); EOS # 0.1 x10^3/uL (0.0-0.7); EOS % 2 % (0-3); HEMATOCRIT 25.4 % (39.0-53.0); HEMOGLOBIN 7.4 g/dL (13.0-17.5); LYMPH # 1.7 x10^3/uL (1.0-4.8); LYMPH % 28 % (24-48); MEAN CORPUSCULAR HEMOGLOBIN 20 pg (25-35); MEAN CORPUSCULAR HGB CONC 29 g/dL (31-37); MEAN CORPUSCULAR VOLUME 67 fL (79-100); MONO # 0.6 x10^3/uL (0.0-1.1); MONO % 10 % (0-9); NEUT # 3.6 x10^3uL (1.8-7.7); NEUT % 58 % (31-73); PLATELET COUNT 426 x10^3/uL (140-400); RED BLOOD COUNT 3.81 x10^6/uL (4.30-5.70); RED CELL DISTRIBUTION WIDTH 22.6 % (11.5-14.5); WHITE BLOOD COUNT 6.2 x10^3/uL (4.0-11.0)
[2018-06-01 05:46] LABS: ALBUMIN 2.8 g/dL (3.4-5.0); ALBUMIN/GLOBULIN RATIO 0.7 (1.0-1.7); CALCIUM 9.4 mg/dL (8.5-10.1); POTASSIUM 3.7 mmol/L (3.5-5.1); TOTAL BILIRUBIN 0.3 mg/dL (0.2-1.0); TOTAL PROTEIN 6.7 g/dL (6.4-8.2)
[2018-06-01 06:00] LABS: CHOLESTEROL/HDL RATIO 6.7
[2018-06-01] MEDS: FUROSEMIDE 20 MG/2 ML VIAL. IVP SCH ×2 (09:26→16:07)
[2018-06-01] MEDS: LISINOPRIL 20 MG TABLET PO SCH (09:26)
[2018-06-01] MEDS: PANTOPRAZOLE 40 MG TABLET.DR. PO SCH ×2 (09:26→16:07)
--- NOTE | 2018-06-01 11:16 | CARD ---
MR#: [id number] Date of Study: 06/01/2018 Ordering Physician: MIKE FLORENCE, Referring Physician: YARELY DIAS Tech: Alice Vegas RDCS APPROVED REPORT EXAM: Two-dimensional and M-mode echocardiogram with Doppler and color Doppler. INDICATION Congestive Heart Failure 2D DIMENSIONS RVDd3.1 (2.9-3.5cm)Left Atrium(2D)3.9 (1.6-4.0cm) IVSd1.6 (0.7-1.1cm)Aortic Root(2D)3.0 (2.0-3.7cm) LVDd5.1 (3.9-5.9cm)PWd1.3 (0.7-1.1cm) LVDs3.1 (2.5-4.0cm)FS (%) 30.0 % LVEF(%)60.0 (>50%) Aortic Valve AoV Peak John.276.7cm/sAoV VTI57.9cm AO Peak GR.30.6mmHgLVOT VTI 20.37cm AO Mean GR.17mmHgAVA (VTI)1.40cm2 AI P 1/2 [id number] Mitral Valve MV E Nkbhfepa03.1cm/sMV DECEL [id number] MV A Gwqvkjea13.8cm/sE/A Ratio1.2 TDI Lateral E' P. V4.83cm/sMedial E' P. V6.24cm/s E/Lateral E'19.3E/Medial E'14.9 Tricuspid Valve TR P. Dpxgqshh004dt/sRAP [id number] TR Peak Gr.[id number] Pulmonary Vein S1 Rljowyed29.6cm/sS2 Kfsdbfto80.55cm/s D2 Estegrjg91.6cm/s LEFT VENTRICLE The left ventricle is normal size. There is mild to moderate concentric left ventricular hypertrophy. The left ventricular systolic function is normal. The Ejection Fraction is 55-60%. There is normal L V segmental wall motion. Transmitral Doppler flow pattern is Grade II-pseudonormal filling dynamics. RIGHT VENTRICLE The right ventricle is normal size. The right ventricular systolic function is normal. ATRIA The left atrium size is normal. The right atrium size is normal. The interatrial septum is intact wit h no evidence for an atrial septal defect or patent foramen ovale as noted on 2-D or Doppler imaging. AORTIC VALVE The aortic valve is calcified and displays decreased opening. Doppler and Color Flow revealed mild ao rtic regurgitation. Calculated aortic valve area is 1.4 cm2 with maximum pressure gradient of 29 mmHg and mean pressure gradient of 17 mmHg. Doppler and color-flow analysis revealed mild aortic stenosis . MITRAL VALVE The mitral valve is calcified but opens well. There is no evidence of mitral valve prolapse. There is no mitral valve stenosis. Doppler and Color-flow revealed trace to mild mitral regurgitation. TRICUSPID VALVE The tricuspid valve is normal in structure and function. Trace tricuspid regurgitation. There is mild pulmonary hypertension. The PA pressure was estimated at 33 mmHg. There is no tricuspid valve stenos is. PULMONIC VALVE The pulmonary valve is normal in structure and function. Doppler and Color Flow revealed trace pulmon ic valvular regurgitation. There is no pulmonic valvular stenosis. GREAT VESSELS The aortic root is normal in size. The ascending aorta is not well seen. The IVC is normal in size an d collapses >50% with inspiration. PERICARDIAL EFFUSION There is no evidence of significant pericardial effusion. Critical Notification Critical Value: No <Conclusion> The left ventricular systolic function is normal. The Ejection Fraction is 55-60%. There is normal LV segmental wall motion. Mild aortic stenosis. Mild aortic regurgitation. Trace to mild mitral regurgitation. Trace tricuspid regurgitation. The PA pressure was estimated at 33 mmHg. There is no evidence of significant pericardial effusion. Signed by : Andrae Ledesma, Electronically Approved : 06/01/2018 11:14:11
--- NOTE | 2018-06-01 13:51 | PDOC ---
PROGRESS NOTES Chief Complaint Chief Complaint .Congestive Heart Failure (CHF) Congestive Obstructive Pulmonary Disease (COPD) Elevated Troponin Anemia, Symptomatic Abnormal imaging with hilar adenopathy History of Present Illness History of Present Illness Patient was seen and examined in ICU. Patient was sitting upright and alert, oriented, and cooperative. Pt presented with SOB and work-up revealed elevated troponin (.097) and elevated D-dimer (1.33) but CT (spiral) was negative for PE. Currently symptomatic anemia with Hgb at 7.3. work-up ruled out possibility of GI bleed. most likely new-onset congestive heart failure complicated by anemia. Patient recently was seen by his primary care physician in [place] who diagnosed him with congestive heart failure started him on diuretic as well as beta jocelyn. He was also noted to be anemic at that time and was started on iron supplementation. Patient was brought in by EMS after receiving breathing treatment.[] Vitals Vitals Vital Signs Date Time Temp Pulse Resp B/P (MAP) Pulse Ox O2 Delivery O2 Flow Rate FiO2 06/01/18 11:00 98.4 68 18 117/49 (71) 97 Room Air 98.4 06/01/18 03:45 2.0 Physical Exam General: Alert, Oriented X3, Cooperative, No acute distress Heart: Regular rate, No murmurs Lungs: Clear Abdomen: Normal bowel sounds, No tenderness, No hepatosplenomegaly Extremities: No clubbing, No cyanosis, No edema, Normal pulses, No tenderness/ swelling Skin: No rashes, No breakdown, No significant lesion Labs LABS Laboratory Tests Test 06/01/18 04:05 White Blood Count 6.2 x10^3/uL (4.0-11.0) Red Blood Count 3.81 x10^6/uL (4.30-5.70) Hemoglobin 7.4 g/dL (13.0-17.5) Hematocrit 25.4 % (39.0-53.0) Mean Corpuscular Volume 67 fL (79-100) Mean Corpuscular Hemoglobin 20 pg (25-35) Mean Corpuscular Hemoglobin Concent 29 g/dL (31-37) Red Cell Distribution Width 22.6 % (11.5-14.5) Platelet Count 426 x10^3/uL (140-400) Neutrophils (%) (Auto) 58 % (31-73) Lymphocytes (%) (Auto) 28 % (24-48) Monocytes (%) (Auto) 10 % (0-9) Eosinophils (%) (Auto) 2 % (0-3) Basophils (%) (Auto) 2 % (0-3) Neutrophils # (Auto) 3.6 x10^3uL (1.8-7.7) Lymphocytes # (Auto) 1.7 x10^3/uL (1.0-4.8) Monocytes # (Auto) 0.6 x10^3/uL (0.0-1.1) Eosinophils # (Auto) 0.1 x10^3/uL (0.0-0.7) Basophils # (Auto) 0.1 x10^3/uL (0.0-0.2) Sodium Level 142 mmol/L (136-145) Potassium Level 3.7 mmol/L (3.5-5.1) Chloride Level 107 mmol/L (98-107) Carbon Dioxide Level 27 mmol/L (21-32) Anion Gap 8 (6-14) Blood Urea Nitrogen 10 mg/dL (8-26) Creatinine 1.0 mg/dL (0.7-1.3) Estimated GFR (Cockcroft-Gault) 77.0 BUN/Creatinine Ratio 10 (6-20) Glucose Level 125 mg/dL (70-99) Calcium Level 9.4 mg/dL (8.5-10.1) Total Bilirubin 0.3 mg/dL (0.2-1.0) Aspartate Amino Transf (AST/SGOT) 12 U/L (15-37) Alanine Aminotransferase (ALT/SGPT) 20 U/L (16-63) Alkaline Phosphatase 66 U/L (46-116) Total Protein 6.7 g/dL (6.4-8.2) Albumin 2.8 g/dL (3.4-5.0) Albumin/Globulin Ratio 0.7 (1.0-1.7) Triglycerides Level 67 mg/dL (0-150) Cholesterol Level 141 mg/dL (0-200) LDL Cholesterol, Calculated 107 mg/dL (0-100) VLDL Cholesterol, Calculated 13 mg/dL (0-40) Non-HDL Cholesterol Calculated 120 mg/dL (0-129) HDL Cholesterol 21 mg/dL (40-60) Cholesterol/HDL Ratio 6.7 Review of Systems Review of Systems GENERAL: denies fever, chills. +fatigue. SKIN: dry, intact, cold. CHEST: no chest pain, no palpitations, no murmur. LUNGS: no wheezing. pt reports mild respiratory distress. Assessment and Plan Assessmemt and Plan Assessment 1. Symptomatic Anemia; non-GI bleed 2. Congestive Heart Failure (CHF) 3. HTN 4. Elevated Troponin 5. Sliding Hiatal Hernia Plan 1. Transfuse [address] recording monitor in ICU 3. Trend labs 4. Home meds and Iron 5. Cardiology following. 6. Consulted Pulmonary for abnormal CXR (hilar adenopathy, b/l infiltrates) Comment Review of Relevant I have reviewed the following items kamini (where applicable) has been applied. Labs Laboratory Tests Test 05/31/18 02:07 05/31/18 02:40 05/31/18 04:40 05/31/18 09:50 Prothrombin Time 13.6 SEC (11.7-14.0) Prothromb Time International Ratio 1.1 (0.8-1.1) White Blood Count 10.1 x10^3/uL (4.0-11.0) Red Blood Count 4.13 x10^6/uL (4.30-5.70) Hemoglobin 8.1 g/dL (13.0-17.5) Hematocrit 27.7 % (39.0-53.0) Mean Corpuscular Volume 67 fL (79-100) Mean Corpuscular Hemoglobin 20 pg (25-35) Mean Corpuscular Hemoglobin Concent 29 g/dL (31-37) Red Cell Distribution Width 22.7 % (11.5-14.5) Platelet Count 478 x10^3/uL (140-400) Neutrophils (%) (Auto) 74 % (31-73) Lymphocytes (%) (Auto) 15 % (24-48) Monocytes (%) (Auto) 9 % (0-9) Eosinophils (%) (Auto) 1 % (0-3) Basophils (%) (Auto) 1 % (0-3) Neutrophils # (Auto) 7.4 x10^3uL (1.8-7.7) Lymphocytes # (Auto) 1.5 x10^3/uL (1.0-4.8) Monocytes # (Auto) 0.9 x10^3/uL (0.0-1.1) Eosinophils # (Auto) 0.1 x10^3/uL (0.0-0.7) Basophils # (Auto) 0.1 x10^3/uL (0.0-0.2) Platelet Estimate Increased (ADEQUATE) Large Platelets Occ Microcytosis Mod Macrocytosis Slight Spherocytes Few Stomatocytes Occ D-Dimer ([facility]) 1.33 ug/mlFEU (0.00-0.50) Sodium Level 142 mmol/L (136-145) Potassium Level 3.8 mmol/L (3.5-5.1) Chloride Level 106 mmol/L (98-107) Carbon Dioxide Level 25 mmol/L (21-32) Anion Gap 11 (6-14) Blood Urea Nitrogen 13 mg/dL (8-26) Creatinine 1.0 mg/dL (0.7-1.3) Estimated GFR (Cockcroft-Gault) 77.0 BUN/Creatinine Ratio 13 (6-20) Glucose Level 114 mg/dL (70-99) Calcium Level 9.8 mg/dL (8.5-10.1) Total Bilirubin 0.2 mg/dL (0.2-1.0) Aspartate Amino Transf (AST/SGOT) 18 U/L (15-37) Alanine Aminotransferase (ALT/SGPT) 25 U/L (16-63) Alkaline Phosphatase 73 U/L (46-116) Troponin I Quantitative 0.088 ng/mL (0.000-0.055) 0.095 ng/mL (0.000-0.055) [id number]-Type Natriuretic Peptide 1651 pg/mL (0-124) Total Protein 7.5 g/dL (6.4-8.2) Albumin 3.5 g/dL (3.4-5.0) Albumin/Globulin Ratio 0.9 (1.0-1.7) Stool Occult Blood Negative (NEG) Reticulocyte Count (auto) 2.0 % (0.5-2.5) Hemoglobin A1c 5.1 % (4.8-5.6) Iron Level 15 ug/dL (65-175) Total Iron Binding Capacity 273 ug/dL (250-450) Iron Saturation 5 % (15-34) Ferritin 23 ng/mL (26-388) Lactate Dehydrogenase 246 U/L (85-227) Vitamin B12 Level 579 pg/mL (247-911) Thyroid Stimulating Hormone (TSH) 1.120 uIU/mL (0.358-3.74) Test 05/31/18 11:13 06/01/18 04:05 Troponin I Quantitative 0.097 ng/mL (0.000-0.055) White Blood Count 6.2 x10^3/uL (4.0-11.0) Red Blood Count 3.81 x10^6/uL (4.30-5.70) Hemoglobin 7.4 g/dL (13.0-17.5) Hematocrit 25.4 % (39.0-53.0) Mean Corpuscular Volume 67 fL (79-100) Mean Corpuscular Hemoglobin 20 pg (25-35) Mean Corpuscular Hemoglobin Concent 29 g/dL (31-37) Red Cell Distribution Width 22.6 % (11.5-14.5) Platelet Count 426 x10^3/uL (140-400) Neutrophils (%) (Auto) 58 % (31-73) Lymphocytes (%) (Auto) 28 % (24-48) Monocytes (%) (Auto) 10 % (0-9) Eosinophils (%) (Auto) 2 % (0-3) Basophils (%) (Auto) 2 % (0-3) Neutrophils # (Auto) 3.6 x10^3uL (1.8-7.7) Lymphocytes # (Auto) 1.7 x10^3/uL (1.0-4.8) Monocytes # (Auto) 0.6 x10^3/uL (0.0-1.1) Eosinophils # (Auto) 0.1 x10^3/uL (0.0-0.7) Basophils # (Auto) 0.1 x10^3/uL (0.0-0.2) Sodium Level 142 mmol/L (136-145) Potassium Level 3.7 mmol/L (3.5-5.1) Chloride Level 107 mmol/L (98-107) Carbon Dioxide Level 27 mmol/L (21-32) Anion Gap 8 (6-14) Blood Urea Nitrogen 10 mg/dL (8-26) Creatinine 1.0 mg/dL (0.7-1.3) Estimated GFR (Cockcroft-Gault) 77.0 BUN/Creatinine Ratio 10 (6-20) Glucose Level 125 mg/dL (70-99) Calcium Level 9.4 mg/dL (8.5-10.1) Total Bilirubin 0.3 mg/dL (0.2-1.0) Aspartate Amino Transf (AST/SGOT) 12 U/L (15-37) Alanine Aminotransferase (ALT/SGPT) 20 U/L (16-63) Alkaline Phosphatase 66 U/L (46-116) Total Protein 6.7 g/dL (6.4-8.2) Albumin 2.8 g/dL (3.4-5.0) Albumin/Globulin Ratio 0.7 (1.0-1.7) Triglycerides Level 67 mg/dL (0-150) Cholesterol Level 141 mg/dL (0-200) LDL Cholesterol, Calculated 107 mg/dL (0-100) VLDL Cholesterol, Calculated 13 mg/dL (0-40) Non-HDL Cholesterol Calculated 120 mg/dL (0-129) HDL Cholesterol 21 mg/dL (40-60) Cholesterol/HDL Ratio 6.7 Laboratory Tests Test 06/01/18 04:05 White Blood Count 6.2 x10^3/uL (4.0-11.0) Red Blood Count 3.81 x10^6/uL (4.30-5.70) Hemoglobin 7.4 g/dL (13.0-17.5) Hematocrit 25.4 % (39.0-53.0) Mean Corpuscular Volume 67 fL (79-100) Mean Corpuscular Hemoglobin 20 pg (25-35) Mean Corpuscular Hemoglobin Concent 29 g/dL (31-37) Red Cell Distribution Width 22.6 % (11.5-14.5) Platelet Count 426 x10^3/uL (140-400) Neutrophils (%) (Auto) 58 % (31-73) Lymphocytes (%) (Auto) 28 % (24-48) Monocytes (%) (Auto) 10 % (0-9) Eosinophils (%) (Auto) 2 % (0-3) Basophils (%) (Auto) 2 % (0-3) Neutrophils # (Auto) 3.6 x10^3uL (1.8-7.7) Lymphocytes # (Auto) 1.7 x10^3/uL (1.0-4.8) Monocytes # (Auto) 0.6 x10^3/uL (0.0-1.1) Eosinophils # (Auto) 0.1 x10^3/uL (0.0-0.7) Basophils # (Auto) 0.1 x10^3/uL (0.0-0.2) Sodium Level 142 mmol/L (136-145) Potassium Level 3.7 mmol/L (3.5-5.1) Chloride Level 107 mmol/L (98-107) Carbon Dioxide Level 27 mmol/L (21-32) Anion Gap 8 (6-14) Blood Urea Nitrogen 10 mg/dL (8-26) Creatinine 1.0 mg/dL (0.7-1.3) Estimated GFR (Cockcroft-Gault) 77.0 BUN/Creatinine Ratio 10 (6-20) Glucose Level 125 mg/dL (70-99) Calcium Level 9.4 mg/dL (8.5-10.1) Total Bilirubin 0.3 mg/dL (0.2-1.0) Aspartate Amino Transf (AST/SGOT) 12 U/L (15-37) Alanine Aminotransferase (ALT/SGPT) 20 U/L (16-63) Alkaline Phosphatase 66 U/L (46-116) Total Protein 6.7 g/dL (6.4-8.2) Albumin 2.8 g/dL (3.4-5.0) Albumin/Globulin Ratio 0.7 (1.0-1.7) Triglycerides Level 67 mg/dL (0-150) Cholesterol Level 141 mg/dL (0-200) LDL Cholesterol, Calculated 107 mg/dL (0-100) VLDL Cholesterol, Calculated 13 mg/dL (0-40) Non-HDL Cholesterol Calculated 120 mg/dL (0-129) HDL Cholesterol 21 mg/dL (40-60) Cholesterol/HDL Ratio 6.7 Medications Current Medications Albuterol/ Ipratropium (Duoneb) 3 ml 1X ONCE NEB Last administered on at 02:03; Start 05/31/18 at 02:00; Stop 05/31/18 at 02:12; Status DC Furosemide (Lasix) 20 mg 1X ONCE IVP Last administered on 05/31/18at 03:14; Start 05/31/18 at 02:15; Stop 05/31/18 at 02:16; Status DC Aspirin (Children'S Aspirin) 324 mg 1X ONCE PO Last administered on 05/31/18at 04:26; Start 05/31/18 at 03:30; Stop 05/31/18 at 03:31; Status DC Iohexol (Omnipaque 350 Mg/ml) 90 ml 1X ONCE IV Last administered on 05/31/18at 04:08; Start 05/31/18 at 04:00; Stop 05/31/18 at 04:01; Status DC Info (CONTRAST GIVEN -- Rx MONITORING) 1 each PRN DAILY PRN MC SEE COMMENTS; Start 05/31/18 at 04:00; Stop 06/02/18 at 03:59 Ondansetron HCl (Zofran) 4 mg PRN Q8HRS PRN IV NAUSEA/VOMITING; Start 05/31/18 at 05:30; Stop 06/01/18 at 05:29; Status DC Acetaminophen (Tylenol) 650 mg PRN Q4HRS PRN PO FEVER; Start 05/31/18 at 05:30 ; Stop 06/01/18 at 05:29; Status DC Nitroglycerin (Nitrostat) 0.4 mg PRN Q5MIN PRN SL CHEST PAIN; Start 05/31/18 at 05:30; Stop 06/01/18 at 05:29; Status DC Lisinopril (Prinivil) 20 mg DAILY PO Last administered on 06/01/18at 09:26; Start 05/31/18 at 12:00 Pantoprazole Sodium (Protonix) 40 mg BIDAC PO Last administered on 06/01/18at 09 :26; Start 05/31/18 at 16:30 Furosemide (Lasix) 20 mg [id number] IVP Last administered on 06/01/18at 09:26; Start 05/31/18 at 14:00 Iron Sucrose 200 mg/Sodium Chloride 110 ml @ 55 mls/hr 1X ONCE IV Last administered on 05/31/18at 11:38; Start 05/31/18 at 12:00; Stop 05/31/18 at 13:59 ; Status DC Active Scripts Active Reported Metoprolol Tartrate 50 Mg Tablet 1 Tab PO DAILY Lisinopril 20 Mg Tablet 1 Tab PO DAILY Nexium Capsule (Esomeprazole Magnesium) 20 Mg Capsule.dr 20 Mg PO BID Hydrochlorothiazide Tablet (Hydrochlorothiazide) 12.5 Mg Tablet 12.5 Mg PO DAILY Vitals/I & O Vital Sign - Last 24 Hours 05/31/18 05/31/18 05/31/18 05/31/18 15:00 19:00 19:10 22:42 Temp 98.7 98.7 98.5 98.7 98.7 98.5 Pulse 81 84 69 Resp 18 18 B/P (MAP) 146/65 (92) 104/55 (71) 126/55 (78) Pulse Ox 93 93 96 O2 Delivery Room Air Room Air Room Air Nasal Cannula O2 Flow Rate 2.0 06/01/18 06/01/18 06/01/18 06/01/18 03:45 07:00 08:00 09:26 Temp 98.2 97.9 98.2 97.9 Pulse 69 77 84 Resp 18 16 B/P (MAP) 120/37 (64) 129/48 (75) 126/48 Pulse Ox 98 98 O2 Delivery Nasal Cannula Room Air Room Air O2 Flow Rate 2.0 06/01/18 11:00 Temp 98.4 98.4 Pulse 68 Resp 18 B/P (MAP) 117/49 (71) Pulse Ox 97 O2 Delivery Room Air Intake and Output 05/31/18 05/31/18 06/01/18 15:01 23:01 07:01 Intake Total 610 ml 700 ml 300 ml Output Total 700 ml 1500 ml 550 ml Balance -90 ml -800 ml -250 ml TYRONE BAY III DO Jun 01, 2018 13:51
--- NOTE | 2018-06-01 16:33 | NUR ---
Ss following for discharge planning. SS reviewed pt chart. Pt is from home with spouse and currently on room air. PT/OT ordered. SS will await PT/OT evaluations and recommendations and will proceed accordingly with discharge planning.
--- NOTE | 2018-06-01 16:38 | PDOC ---
PROGRESS NOTES Subjective Subjective Patient seen and examined He looks and feels better today. Objective Objective Vital Signs Date Time Temp Pulse Resp B/P (MAP) Pulse Ox O2 Delivery O2 Flow Rate FiO2 06/01/18 15:30 98.5 62 22 125/64 (84) 97 Room Air 98.5 06/01/18 03:45 2.0 Intake and Output 06/01/18 07:01 Intake Total 1610 ml Output Total 2750 ml Balance -1140 ml Intake Oral 1500 ml IV Total 110 ml Output Urine Total 2750 ml Physical Exam Abdomen: Normal bowel sounds Heart: Regular rate General: No acute distress Lungs: Clear to auscultation, Other (mildly decreased breath sounds) Assessment Assessment Problems Medical Problems: (1) Anemia Status: Acute (2) Congestive heart failure Status: Acute (3) COPD (chronic obstructive pulmonary disease) Status: Acute (4) Non-STEMI (non-ST elevated myocardial infarction) Status: Acute 1. Acute on chronic heart failure. Patient is improved with diuresis. BNP was elevated and the patient apparently was diagnosed as having heart failure at his home in [place] 2-3 weeks ago. Will continue on diuresis and baseline medications for heart failure. Echocardiogram pending. 2. Hypertension. Initially significantly elevated. Improved on medications. We' ll continue to monitor and adjust medications as needed. 3. COPD. Patient continues to smoke approximately a pack of cigarettes a day. We 'll continue medical treatment as above. 4. Anemia. Hemoglobin and hematocrit have fallen to 7.4 and 25.4. Being transfused by the primary service. Workup by the primary service. 5. Minimally elevated troponin at 0.097. No acute EKG changes. Minimally elevated troponin multifactorial including heart failure, hypertension and anemia. Patient will require future ischemic workup but at this time he would prefer to have it done with his home physician. Comment Review of Relevant I have reviewed the following items kamini (where applicable) has been applied. Labs Laboratory Tests Test 05/31/18 02:07 05/31/18 02:40 05/31/18 04:40 05/31/18 09:50 Prothrombin Time 13.6 SEC (11.7-14.0) Prothromb Time International Ratio 1.1 (0.8-1.1) White Blood Count 10.1 x10^3/uL (4.0-11.0) Red Blood Count 4.13 x10^6/uL (4.30-5.70) Hemoglobin 8.1 g/dL (13.0-17.5) Hematocrit 27.7 % (39.0-53.0) Mean Corpuscular Volume 67 fL (79-100) Mean Corpuscular Hemoglobin 20 pg (25-35) Mean Corpuscular Hemoglobin Concent 29 g/dL (31-37) Red Cell Distribution Width 22.7 % (11.5-14.5) Platelet Count 478 x10^3/uL (140-400) Neutrophils (%) (Auto) 74 % (31-73) Lymphocytes (%) (Auto) 15 % (24-48) Monocytes (%) (Auto) 9 % (0-9) Eosinophils (%) (Auto) 1 % (0-3) Basophils (%) (Auto) 1 % (0-3) Neutrophils # (Auto) 7.4 x10^3uL (1.8-7.7) Lymphocytes # (Auto) 1.5 x10^3/uL (1.0-4.8) Monocytes # (Auto) 0.9 x10^3/uL (0.0-1.1) Eosinophils # (Auto) 0.1 x10^3/uL (0.0-0.7) Basophils # (Auto) 0.1 x10^3/uL (0.0-0.2) Platelet Estimate Increased (ADEQUATE) Large Platelets Occ Microcytosis Mod Macrocytosis Slight Spherocytes Few Stomatocytes Occ D-Dimer ([facility]) 1.33 ug/mlFEU (0.00-0.50) Sodium Level 142 mmol/L (136-145) Potassium Level 3.8 mmol/L (3.5-5.1) Chloride Level 106 mmol/L (98-107) Carbon Dioxide Level 25 mmol/L (21-32) Anion Gap 11 (6-14) Blood Urea Nitrogen 13 mg/dL (8-26) Creatinine 1.0 mg/dL (0.7-1.3) Estimated GFR (Cockcroft-Gault) 77.0 BUN/Creatinine Ratio 13 (6-20) Glucose Level 114 mg/dL (70-99) Calcium Level 9.8 mg/dL (8.5-10.1) Total Bilirubin 0.2 mg/dL (0.2-1.0) Aspartate Amino Transf (AST/SGOT) 18 U/L (15-37) Alanine Aminotransferase (ALT/SGPT) 25 U/L (16-63) Alkaline Phosphatase 73 U/L (46-116) Troponin I Quantitative 0.088 ng/mL (0.000-0.055) 0.095 ng/mL (0.000-0.055) W[place]-[id number]-Type Natriuretic Peptide 1651 pg/mL (0-124) Total Protein 7.5 g/dL (6.4-8.2) Albumin 3.5 g/dL (3.4-5.0) Albumin/Globulin Ratio 0.9 (1.0-1.7) Stool Occult Blood Negative (NEG) Reticulocyte Count (auto) 2.0 % (0.5-2.5) Hemoglobin A1c 5.1 % (4.8-5.6) Iron Level 15 ug/dL (65-175) Total Iron Binding Capacity 273 ug/dL (250-450) Iron Saturation 5 % (15-34) Ferritin 23 ng/mL (26-388) Lactate Dehydrogenase 246 U/L (85-227) Vitamin B12 Level 579 pg/mL (247-911) Thyroid Stimulating Hormone (TSH) 1.120 uIU/mL (0.358-3.74) Test 05/31/18 11:13 06/01/18 04:05 Troponin I Quantitative 0.097 ng/mL (0.000-0.055) White Blood Count 6.2 x10^3/uL (4.0-11.0) Red Blood Count 3.81 x10^6/uL (4.30-5.70) Hemoglobin 7.4 g/dL (13.0-17.5) Hematocrit 25.4 % (39.0-53.0) Mean Corpuscular Volume 67 fL (79-100) Mean Corpuscular Hemoglobin 20 pg (25-35) Mean Corpuscular Hemoglobin Concent 29 g/dL (31-37) Red Cell Distribution Width 22.6 % (11.5-14.5) Platelet Count 426 x10^3/uL (140-400) Neutrophils (%) (Auto) 58 % (31-73) Lymphocytes (%) (Auto) 28 % (24-48) Monocytes (%) (Auto) 10 % (0-9) Eosinophils (%) (Auto) 2 % (0-3) Basophils (%) (Auto) 2 % (0-3) Neutrophils # (Auto) 3.6 x10^3uL (1.8-7.7) Lymphocytes # (Auto) 1.7 x10^3/uL (1.0-4.8) Monocytes # (Auto) 0.6 x10^3/uL (0.0-1.1) Eosinophils # (Auto) 0.1 x10^3/uL (0.0-0.7) Basophils # (Auto) 0.1 x10^3/uL (0.0-0.2) Sodium Level 142 mmol/L (136-145) Potassium Level 3.7 mmol/L (3.5-5.1) Chloride Level 107 mmol/L (98-107) Carbon Dioxide Level 27 mmol/L (21-32) Anion Gap 8 (6-14) Blood Urea Nitrogen 10 mg/dL (8-26) Creatinine 1.0 mg/dL (0.7-1.3) Estimated GFR (Cockcroft-Gault) 77.0 BUN/Creatinine Ratio 10 (6-20) Glucose Level 125 mg/dL (70-99) Calcium Level 9.4 mg/dL (8.5-10.1) Total Bilirubin 0.3 mg/dL (0.2-1.0) Aspartate Amino Transf (AST/SGOT) 12 U/L (15-37) Alanine Aminotransferase (ALT/SGPT) 20 U/L (16-63) Alkaline Phosphatase 66 U/L (46-116) Total Protein 6.7 g/dL (6.4-8.2) Albumin 2.8 g/dL (3.4-5.0) Albumin/Globulin Ratio 0.7 (1.0-1.7) Triglycerides Level 67 mg/dL (0-150) Cholesterol Level 141 mg/dL (0-200) LDL Cholesterol, Calculated 107 mg/dL (0-100) VLDL Cholesterol, Calculated 13 mg/dL (0-40) Non-HDL Cholesterol Calculated 120 mg/dL (0-129) HDL Cholesterol 21 mg/dL (40-60) Cholesterol/HDL Ratio 6.7 Laboratory Tests Test 06/01/18 04:05 White Blood Count 6.2 x10^3/uL (4.0-11.0) Red Blood Count 3.81 x10^6/uL (4.30-5.70) Hemoglobin 7.4 g/dL (13.0-17.5) Hematocrit 25.4 % (39.0-53.0) Mean Corpuscular Volume 67 fL (79-100) Mean Corpuscular Hemoglobin 20 pg (25-35) Mean Corpuscular Hemoglobin Concent 29 g/dL (31-37) Red Cell Distribution Width 22.6 % (11.5-14.5) Platelet Count 426 x10^3/uL (140-400) Neutrophils (%) (Auto) 58 % (31-73) Lymphocytes (%) (Auto) 28 % (24-48) Monocytes (%) (Auto) 10 % (0-9) Eosinophils (%) (Auto) 2 % (0-3) Basophils (%) (Auto) 2 % (0-3) Neutrophils # (Auto) 3.6 x10^3uL (1.8-7.7) Lymphocytes # (Auto) 1.7 x10^3/uL (1.0-4.8) Monocytes # (Auto) 0.6 x10^3/uL (0.0-1.1) Eosinophils # (Auto) 0.1 x10^3/uL (0.0-0.7) Basophils # (Auto) 0.1 x10^3/uL (0.0-0.2) Sodium Level 142 mmol/L (136-145) Potassium Level 3.7 mmol/L (3.5-5.1) Chloride Level 107 mmol/L (98-107) Carbon Dioxide Level 27 mmol/L (21-32) Anion Gap 8 (6-14) Blood Urea Nitrogen 10 mg/dL (8-26) Creatinine 1.0 mg/dL (0.7-1.3) Estimated GFR (Cockcroft-Gault) 77.0 BUN/Creatinine Ratio 10 (6-20) Glucose Level 125 mg/dL (70-99) Calcium Level 9.4 mg/dL (8.5-10.1) Total Bilirubin 0.3 mg/dL (0.2-1.0) Aspartate Amino Transf (AST/SGOT) 12 U/L (15-37) Alanine Aminotransferase (ALT/SGPT) 20 U/L (16-63) Alkaline Phosphatase 66 U/L (46-116) Total Protein 6.7 g/dL (6.4-8.2) Albumin 2.8 g/dL (3.4-5.0) Albumin/Globulin Ratio 0.7 (1.0-1.7) Triglycerides Level 67 mg/dL (0-150) Cholesterol Level 141 mg/dL (0-200) LDL Cholesterol, Calculated 107 mg/dL (0-100) VLDL Cholesterol, Calculated 13 mg/dL (0-40) Non-HDL Cholesterol Calculated 120 mg/dL (0-129) HDL Cholesterol 21 mg/dL (40-60) Cholesterol/HDL Ratio 6.7 Medications Current Medications Albuterol/ Ipratropium (Duoneb) 3 ml 1X ONCE NEB Last administered on at 02:03; Start 05/31/18 at 02:00; Stop 05/31/18 at 02:12; Status DC Furosemide (Lasix) 20 mg 1X ONCE IVP Last administered on 05/31/18at 03:14; Start 05/31/18 at 02:15; Stop 05/31/18 at 02:16; Status DC Aspirin (Children'S Aspirin) 324 mg 1X ONCE PO Last administered on 05/31/18at 04:26; Start 05/31/18 at 03:30; Stop 05/31/18 at 03:31; Status DC Iohexol (Omnipaque 350 Mg/ml) 90 ml 1X ONCE IV Last administered on 05/31/18at 04:08; Start 05/31/18 at 04:00; Stop 05/31/18 at 04:01; Status DC Info (CONTRAST GIVEN -- Rx MONITORING) 1 each PRN DAILY PRN MC SEE COMMENTS; Start 05/31/18 at 04:00; Stop 06/02/18 at 03:59 Ondansetron HCl (Zofran) 4 mg PRN Q8HRS PRN IV NAUSEA/VOMITING; Start 05/31/18 at 05:30; Stop 06/01/18 at 05:29; Status DC Acetaminophen (Tylenol) 650 mg PRN Q4HRS PRN PO FEVER; Start 05/31/18 at 05:30 ; Stop 06/01/18 at 05:29; Status DC Nitroglycerin (Nitrostat) 0.4 mg PRN Q5MIN PRN SL CHEST PAIN; Start 05/31/18 at 05:30; Stop 06/01/18 at 05:29; Status DC Lisinopril (Prinivil) 20 mg DAILY PO Last administered on 06/01/18at 09:26; Start 05/31/18 at 12:00 Pantoprazole Sodium (Protonix) 40 mg BIDAC PO Last administered on 06/01/18at 16 :07; Start 05/31/18 at 16:30 Furosemide (Lasix) 20 mg [id number] IVP Last administered on 06/01/18at 16:07; Start 05/31/18 at 14:00 Iron Sucrose 200 mg/Sodium Chloride 110 ml @ 55 mls/hr 1X ONCE IV Last administered on 05/31/18at 11:38; Start 05/31/18 at 12:00; Stop 05/31/18 at 13:59 ; Status DC Active Scripts Active Reported Metoprolol Tartrate 50 Mg Tablet 1 Tab PO DAILY Lisinopril 20 Mg Tablet 1 Tab PO DAILY Nexium Capsule (Esomeprazole Magnesium) 20 Mg Capsule.dr 20 Mg PO BID Hydrochlorothiazide Tablet (Hydrochlorothiazide) 12.5 Mg Tablet 12.5 Mg PO DAILY Vitals/I & O Vital Sign - Last 24 Hours 05/31/18 05/31/18 05/31/18 06/01/18 19:00 19:10 22:42 03:45 Temp 98.7 98.5 98.2 98.7 98.5 98.2 Pulse 84 69 69 Resp 18 18 18 B/P (MAP) 104/55 (71) 126/55 (78) 120/37 (64) Pulse Ox 93 96 98 O2 Delivery Room Air Room Air Nasal Cannula Nasal Cannula O2 Flow Rate 2.0 2.0 06/01/18 06/01/18 06/01/18 06/01/18 07:00 08:00 09:26 11:00 Temp 97.9 98.4 97.9 98.4 Pulse 77 84 68 Resp 16 18 B/P (MAP) 129/48 (75) 126/48 117/49 (71) Pulse Ox 98 97 O2 Delivery Room Air Room Air Room Air 06/01/18 06/01/18 06/01/18 06/01/18 14:09 14:25 15:25 15:30 Temp 98.2 98.0 98.5 98.5 98.2 98.0 98.5 98.5 Pulse 73 73 77 62 Resp 20 20 19 22 B/P (MAP) 113/46 145/64 125/64 125/64 (84) Pulse Ox 97 O2 Delivery Room Air Intake and Output 05/31/18 05/31/18 06/01/18 15:01 23:01 07:01 Intake Total 610 ml 700 ml 300 ml Output Total 700 ml 1500 ml 550 ml Balance -90 ml -800 ml -250 ml MIKE FLORENCE MD Jun 01, 2018 16:38
[2018-06-02 03:08] VITALS: BP 140/59
[2018-06-02 04:31] LABS: AMPHETAMINE/METHAMPHETAMINE NEG (NEG); BARBITURATES NEG (NEG); BENZODIAZEPINES NEG (NEG); CANNABINOIDS NEG (NEG); COCAINE NEG (NEG); METHADONE NEG (NEG); OPIATES NEG (NEG); PHENCYCLIDINE NEG (NEG)
[2018-06-02 07:00] VITALS: BP 139/80
[2018-06-02 07:20] LABS: ALBUMIN 3.2 g/dL (3.4-5.0); ALBUMIN/GLOBULIN RATIO 0.8 (1.0-1.7); CALCIUM 9.2 mg/dL (8.5-10.1); CREATININE 1.1 mg/dL (0.7-1.3); TOTAL BILIRUBIN 0.4 mg/dL (0.2-1.0); TOTAL PROTEIN 7.2 g/dL (6.4-8.2)
[2018-06-02 07:27] LABS: BASO # 0.1 x10^3/uL (0.0-0.2); BASO % 1 % (0-3); EOS # 0.2 x10^3/uL (0.0-0.7); EOS % 2 % (0-3); HEMATOCRIT 31.1 % (39.0-53.0); HEMOGLOBIN 9.3 g/dL (13.0-17.5); LYMPH # 1.9 x10^3/uL (1.0-4.8); LYMPH % 26 % (24-48); MEAN CORPUSCULAR HEMOGLOBIN 21 pg (25-35); MEAN CORPUSCULAR HGB CONC 30 g/dL (31-37); MEAN CORPUSCULAR VOLUME 69 fL (79-100); MONO # 0.8 x10^3/uL (0.0-1.1); MONO % 11 % (0-9); NEUT # 4.4 x10^3uL (1.8-7.7); NEUT % 60 % (31-73); PLATELET COUNT 470 x10^3/uL (140-400); RED BLOOD COUNT 4.48 x10^6/uL (4.30-5.70); RED CELL DISTRIBUTION WIDTH 23.7 % (11.5-14.5); WHITE BLOOD COUNT 7.3 x10^3/uL (4.0-11.0)
[2018-06-02] MEDS: PANTOPRAZOLE 40 MG TABLET.DR. PO SCH (08:59)
[2018-06-02] MEDS: LISINOPRIL 20 MG TABLET PO SCH (08:59)
[2018-06-02] MEDS: FUROSEMIDE 20 MG/2 ML VIAL. IVP SCH ×2 (08:59→14:40)
[2018-06-02 11:00] VITALS: BP 127/68
--- NOTE | 2018-06-02 12:28 | PDOC ---
PULMONARY PROGRESS NOTES Vitals Vital Signs Date Time Temp Pulse Resp B/P (MAP) Pulse Ox O2 Delivery O2 Flow Rate FiO2 06/02/18 11:00 98.5 77 21 127/68 (87) 97 Room Air 98.5 06/01/18 19:50 2.0 Lungs: Clear Labs Laboratory Tests Test 06/01/18 04:05 06/02/18 04:05 06/02/18 06:05 White Blood Count 6.2 x10^3/uL (4.0-11.0) 7.3 x10^3/uL (4.0-11.0) Red Blood Count 3.81 x10^6/uL (4.30-5.70) 4.48 x10^6/uL (4.30-5.70) Hemoglobin 7.4 g/dL (13.0-17.5) 9.3 g/dL (13.0-17.5) Hematocrit 25.4 % (39.0-53.0) 31.1 % (39.0-53.0) Mean Corpuscular Volume 67 fL (79-100) 69 fL (79-100) Mean Corpuscular Hemoglobin 20 pg (25-35) 21 pg (25-35) Mean Corpuscular Hemoglobin Concent 29 g/dL (31-37) 30 g/dL (31-37) Red Cell Distribution Width 22.6 % (11.5-14.5) 23.7 % (11.5-14.5) Platelet Count 426 x10^3/uL (140-400) 470 x10^3/uL (140-400) Neutrophils (%) (Auto) 58 % (31-73) 60 % (31-73) Lymphocytes (%) (Auto) 28 % (24-48) 26 % (24-48) Monocytes (%) (Auto) 10 % (0-9) 11 % (0-9) Eosinophils (%) (Auto) 2 % (0-3) 2 % (0-3) Basophils (%) (Auto) 2 % (0-3) 1 % (0-3) Neutrophils # (Auto) 3.6 x10^3uL (1.8-7.7) 4.4 x10^3uL (1.8-7.7) Lymphocytes # (Auto) 1.7 x10^3/uL (1.0-4.8) 1.9 x10^3/uL (1.0-4.8) Monocytes # (Auto) 0.6 x10^3/uL (0.0-1.1) 0.8 x10^3/uL (0.0-1.1) Eosinophils # (Auto) 0.1 x10^3/uL (0.0-0.7) 0.2 x10^3/uL (0.0-0.7) Basophils # (Auto) 0.1 x10^3/uL (0.0-0.2) 0.1 x10^3/uL (0.0-0.2) Sodium Level 142 mmol/L (136-145) 143 mmol/L (136-145) Potassium Level 3.7 mmol/L (3.5-5.1) 4.0 mmol/L (3.5-5.1) Chloride Level 107 mmol/L (98-107) 105 mmol/L (98-107) Carbon Dioxide Level 27 mmol/L (21-32) 29 mmol/L (21-32) Anion Gap 8 (6-14) 9 (6-14) Blood Urea Nitrogen 10 mg/dL (8-26) 11 mg/dL (8-26) Creatinine 1.0 mg/dL (0.7-1.3) 1.1 mg/dL (0.7-1.3) Estimated GFR (Cockcroft-Gault) 77.0 69.0 BUN/Creatinine Ratio 10 (6-20) 10 (6-20) Glucose Level 125 mg/dL (70-99) 95 mg/dL (70-99) Calcium Level 9.4 mg/dL (8.5-10.1) 9.2 mg/dL (8.5-10.1) Total Bilirubin 0.3 mg/dL (0.2-1.0) 0.4 mg/dL (0.2-1.0) Aspartate Amino Transf (AST/SGOT) 12 U/L (15-37) 15 U/L (15-37) Alanine Aminotransferase (ALT/SGPT) 20 U/L (16-63) 23 U/L (16-63) Alkaline Phosphatase 66 U/L (46-116) 66 U/L (46-116) Total Protein 6.7 g/dL (6.4-8.2) 7.2 g/dL (6.4-8.2) Albumin 2.8 g/dL (3.4-5.0) 3.2 g/dL (3.4-5.0) Albumin/Globulin Ratio 0.7 (1.0-1.7) 0.8 (1.0-1.7) Triglycerides Level 67 mg/dL (0-150) Cholesterol Level 141 mg/dL (0-200) LDL Cholesterol, Calculated 107 mg/dL (0-100) VLDL Cholesterol, Calculated 13 mg/dL (0-40) Non-HDL Cholesterol Calculated 120 mg/dL (0-129) HDL Cholesterol 21 mg/dL (40-60) Cholesterol/HDL Ratio 6.7 Urine Opiates Screen Neg (NEG) Urine Methadone Screen Neg (NEG) Urine Barbiturates Neg (NEG) Urine Phencyclidine Screen Neg (NEG) Urine Amphetamine/Methamphetamine Neg (NEG) Urine Benzodiazepines Screen Neg (NEG) Urine Cocaine Screen Neg (NEG) Urine Cannabinoids Screen Neg (NEG) Urine Ethyl Alcohol Neg (NEG) Laboratory Tests Test 06/02/18 04:05 06/02/18 06:05 Urine Opiates Screen Neg (NEG) Urine Methadone Screen Neg (NEG) Urine Barbiturates Neg (NEG) Urine Phencyclidine Screen Neg (NEG) Urine Amphetamine/Methamphetamine Neg (NEG) Urine Benzodiazepines Screen Neg (NEG) Urine Cocaine Screen Neg (NEG) Urine Cannabinoids Screen Neg (NEG) Urine Ethyl Alcohol Neg (NEG) White Blood Count 7.3 x10^3/uL (4.0-11.0) Red Blood Count 4.48 x10^6/uL (4.30-5.70) Hemoglobin 9.3 g/dL (13.0-17.5) Hematocrit 31.1 % (39.0-53.0) Mean Corpuscular Volume 69 fL (79-100) Mean Corpuscular Hemoglobin 21 pg (25-35) Mean Corpuscular Hemoglobin Concent 30 g/dL (31-37) Red Cell Distribution Width 23.7 % (11.5-14.5) Platelet Count 470 x10^3/uL (140-400) Neutrophils (%) (Auto) 60 % (31-73) Lymphocytes (%) (Auto) 26 % (24-48) Monocytes (%) (Auto) 11 % (0-9) Eosinophils (%) (Auto) 2 % (0-3) Basophils (%) (Auto) 1 % (0-3) Neutrophils # (Auto) 4.4 x10^3uL (1.8-7.7) Lymphocytes # (Auto) 1.9 x10^3/uL (1.0-4.8) Monocytes # (Auto) 0.8 x10^3/uL (0.0-1.1) Eosinophils # (Auto) 0.2 x10^3/uL (0.0-0.7) Basophils # (Auto) 0.1 x10^3/uL (0.0-0.2) Sodium Level 143 mmol/L (136-145) Potassium Level 4.0 mmol/L (3.5-5.1) Chloride Level 105 mmol/L (98-107) Carbon Dioxide Level 29 mmol/L (21-32) Anion Gap 9 (6-14) Blood Urea Nitrogen 11 mg/dL (8-26) Creatinine 1.1 mg/dL (0.7-1.3) Estimated GFR (Cockcroft-Gault) 69.0 BUN/Creatinine Ratio 10 (6-20) Glucose Level 95 mg/dL (70-99) Calcium Level 9.2 mg/dL (8.5-10.1) Total Bilirubin 0.4 mg/dL (0.2-1.0) Aspartate Amino Transf (AST/SGOT) 15 U/L (15-37) Alanine Aminotransferase (ALT/SGPT) 23 U/L (16-63) Alkaline Phosphatase 66 U/L (46-116) Total Protein 7.2 g/dL (6.4-8.2) Albumin 3.2 g/dL (3.4-5.0) Albumin/Globulin Ratio 0.8 (1.0-1.7) Medications Active Scripts Medications Dose Route/Sig Max Daily Dose Days Date Category Metoprolol Tartrate 50 Mg Tablet 1 Tab PO DAILY 05/31/18 Reported Lisinopril 20 Mg Tablet 1 Tab PO DAILY 05/31/18 Reported Nexium Capsule (Esomeprazole Magnesium) 20 Mg Capsule.dr 20 Mg PO BID 05/31/18 Reported Hydrochlorothiazide Tablet (Hydrochlorothiazide) 12.5 Mg Tablet 12.5 Mg PO DAILY 05/31/18 Reported Impression . DICTATED OK TO D/GINO INMAN MD Jun 02, 2018 12:28
--- NOTE | 2018-06-02 12:35 | CONS ---
DATE OF CONSULTATION: 06/02/2018 ATTENDING PHYSICIAN: Chucho Wagner MD. REASON FOR CONSULTATION: The patient seen in pulmonary consultation at the request of Dr. Manrique for abnormal CT chest. 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 He was seen by Cardiology. He has been treated for acute on chronic heart failure. He had an echocardiogram revealing ejection fraction 55%. Part of his workup included CT angiogram. I reviewed that there is bilateral mild infiltrates in the lung bases, mild adenopathy. The patient smokes. He has been smoking most of his adult life. 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 He does not experience acute exacerbations of COPD on a frequent basis. In fact, he does not think he has COPD. PAST MEDICAL HISTORY: Hypertension, tobacco dependent, possible COPD. PAST SURGICAL HISTORY: None. FAMILY HISTORY: Coronary artery disease. SOCIAL HISTORY: He smokes. 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 CURRENT MEDICATIONS: List was reviewed. REVIEW OF SYSTEMS: As indicated above, otherwise 10-point system was reviewed and negative. PHYSICAL EXAMINATION: GENERAL: The patient was in no respiratory distress. VITAL SIGNS: O2 saturation on room air was 96%. HEENT: Eyes, the sclerae were nonicteric. NECK: Jugular venous distention was not elevated. No lymphadenopathy. CHEST: Full expansion. LUNGS: Adequate airway flow, no wheezes. CARDIOVASCULAR: Regular rate and rhythm with S1, S2, no S3. ABDOMEN: Soft, nontender, nondistended. EXTREMITIES: No clubbing, cyanosis or edema. LABORATORY DATA: Reviewed. Electrolytes were reviewed. Chest x-ray and CT as indicated above. IMPRESSION: 1. Acute respiratory failure secondary to acute on chronic diastolic heart failure. 2. Acute on chronic diastolic heart failure. 3. Abnormal CT angiogram revealing no evidence of pulmonary embolism, there was evidence of atelectasis and possible pneumonia in the bases. 4. Acute exacerbation of chronic obstructive pulmonary disease. 5. Tobacco dependence. 6. Hypertension. PLAN: 1. From my standpoint of view, the patient is okay to discharge home on doxycycline. 2. Discontinue tobacco. 3. Follow up with his family doctor in [place]. 4. Albuterol p.r.n. I have written a script for both albuterol and doxycycline. I do appreciate the privilege in sharing in the patient's care. GINO URIARTE MD DR: CHARLOTTE/samy JOB#: [id number] / [id number]
--- NOTE | 2018-06-02 12:55 | NUR ---
SS following up with discharge planning. Therapy signed off for pt. Disposition for discharge is home with spouse.
--- NOTE | 2018-06-02 13:48 | PDOC ---
PROGRESS NOTES Chief Complaint Chief Complaint .Congestive Heart Failure (CHF) Congestive Obstructive Pulmonary Disease (COPD) Elevated Troponin Anemia, Symptomatic Abnormal imaging with hilar adenopathy History of Present Illness History of Present Illness Patient was seen and examined in ICU. Patient was sitting upright and alert, oriented, and cooperative. Pt presented with SOB and work-up revealed elevated troponin (.097) and elevated D-dimer ( 1.33) but CT (spiral) was negative for PE. Currently symptomatic anemia with Hgb at 7.3. work-up ruled out possibility of GI bleed. most likely new-onset congestive heart failure complicated by anemia. Patient recently was seen by his primary care physician in [place] who diagnosed him with congestive heart failure started him on diuretic as well as beta jocelyn. He was also noted to be anemic at that time and was started on iron supplementation. Patient was brought in by EMS after receiving breathing treatment 06/02/2018: pt was up and walking around his room anticipating discharge today. filled out employment form for the patient to return to work. Vitals Vitals Vital Signs Date Time Temp Pulse Resp B/P (MAP) Pulse Ox O2 Delivery O2 Flow Rate FiO2 06/02/18 11:00 98.5 77 21 127/68 (87) 97 Room Air 98.5 06/01/18 19:50 2.0 Physical Exam General: Alert, No acute distress Heart: Regular rate Lungs: Clear Abdomen: Normal bowel sounds, Soft Extremities: No clubbing, No cyanosis, No edema, Normal pulses, No tenderness/ swelling Skin: No rashes, No breakdown, No significant lesion Labs LABS Laboratory Tests Test 06/02/18 04:05 06/02/18 06:05 Urine Opiates Screen Neg (NEG) Urine Methadone Screen Neg (NEG) Urine Barbiturates Neg (NEG) Urine Phencyclidine Screen Neg (NEG) Urine Amphetamine/Methamphetamine Neg (NEG) Urine Benzodiazepines Screen Neg (NEG) Urine Cocaine Screen Neg (NEG) Urine Cannabinoids Screen Neg (NEG) Urine Ethyl Alcohol Neg (NEG) White Blood Count 7.3 x10^3/uL (4.0-11.0) Red Blood Count 4.48 x10^6/uL (4.30-5.70) Hemoglobin 9.3 g/dL (13.0-17.5) Hematocrit 31.1 % (39.0-53.0) Mean Corpuscular Volume 69 fL (79-100) Mean Corpuscular Hemoglobin 21 pg (25-35) Mean Corpuscular Hemoglobin Concent 30 g/dL (31-37) Red Cell Distribution Width 23.7 % (11.5-14.5) Platelet Count 470 x10^3/uL (140-400) Neutrophils (%) (Auto) 60 % (31-73) Lymphocytes (%) (Auto) 26 % (24-48) Monocytes (%) (Auto) 11 % (0-9) Eosinophils (%) (Auto) 2 % (0-3) Basophils (%) (Auto) 1 % (0-3) Neutrophils # (Auto) 4.4 x10^3uL (1.8-7.7) Lymphocytes # (Auto) 1.9 x10^3/uL (1.0-4.8) Monocytes # (Auto) 0.8 x10^3/uL (0.0-1.1) Eosinophils # (Auto) 0.2 x10^3/uL (0.0-0.7) Basophils # (Auto) 0.1 x10^3/uL (0.0-0.2) Sodium Level 143 mmol/L (136-145) Potassium Level 4.0 mmol/L (3.5-5.1) Chloride Level 105 mmol/L (98-107) Carbon Dioxide Level 29 mmol/L (21-32) Anion Gap 9 (6-14) Blood Urea Nitrogen 11 mg/dL (8-26) Creatinine 1.1 mg/dL (0.7-1.3) Estimated GFR (Cockcroft-Gault) 69.0 BUN/Creatinine Ratio 10 (6-20) Glucose Level 95 mg/dL (70-99) Calcium Level 9.2 mg/dL (8.5-10.1) Total Bilirubin 0.4 mg/dL (0.2-1.0) Aspartate Amino Transf (AST/SGOT) 15 U/L (15-37) Alanine Aminotransferase (ALT/SGPT) 23 U/L (16-63) Alkaline Phosphatase 66 U/L (46-116) Total Protein 7.2 g/dL (6.4-8.2) Albumin 3.2 g/dL (3.4-5.0) Albumin/Globulin Ratio 0.8 (1.0-1.7) Review of Systems Review of Systems General: no acute distress, no fever, no chills. energy improved. Skin: dry, intact, no rash. Cardiac: no chest pain, no murmur, no arrhythmia. Respiratory: no shortness of breath, no cough, no wheezing. Assessment and Plan Assessmemt and Plan Assessment 1. symptomatic anemia; non-GI bleed; hemoglobin improved from 7.2 to 9.3 following transfusion. 2. congestive heart failure (CHF) 3. hypertension 4. elevated troponin 5. sliding hiatal hernia 6. COPD Plan 1. cardiac monitoring 2. cardiac diet 3. trend labs 4. home meds 5. iron supplementation 6. cardiology following 7. filled out employment form for the patient to return to work 8. probable discharge today if ok with cardiology Comment Review of Relevant I have reviewed the following items kamini (where applicable) has been applied. Labs Laboratory Tests Test 06/01/18 04:05 06/02/18 04:05 06/02/18 06:05 White Blood Count 6.2 x10^3/uL (4.0-11.0) 7.3 x10^3/uL (4.0-11.0) Red Blood Count 3.81 x10^6/uL (4.30-5.70) 4.48 x10^6/uL (4.30-5.70) Hemoglobin 7.4 g/dL (13.0-17.5) 9.3 g/dL (13.0-17.5) Hematocrit 25.4 % (39.0-53.0) 31.1 % (39.0-53.0) Mean Corpuscular Volume 67 fL (79-100) 69 fL (79-100) Mean Corpuscular Hemoglobin 20 pg (25-35) 21 pg (25-35) Mean Corpuscular Hemoglobin Concent 29 g/dL (31-37) 30 g/dL (31-37) Red Cell Distribution Width 22.6 % (11.5-14.5) 23.7 % (11.5-14.5) Platelet Count 426 x10^3/uL (140-400) 470 x10^3/uL (140-400) Neutrophils (%) (Auto) 58 % (31-73) 60 % (31-73) Lymphocytes (%) (Auto) 28 % (24-48) 26 % (24-48) Monocytes (%) (Auto) 10 % (0-9) 11 % (0-9) Eosinophils (%) (Auto) 2 % (0-3) 2 % (0-3) Basophils (%) (Auto) 2 % (0-3) 1 % (0-3) Neutrophils # (Auto) 3.6 x10^3uL (1.8-7.7) 4.4 x10^3uL (1.8-7.7) Lymphocytes # (Auto) 1.7 x10^3/uL (1.0-4.8) 1.9 x10^3/uL (1.0-4.8) Monocytes # (Auto) 0.6 x10^3/uL (0.0-1.1) 0.8 x10^3/uL (0.0-1.1) Eosinophils # (Auto) 0.1 x10^3/uL (0.0-0.7) 0.2 x10^3/uL (0.0-0.7) Basophils # (Auto) 0.1 x10^3/uL (0.0-0.2) 0.1 x10^3/uL (0.0-0.2) Sodium Level 142 mmol/L (136-145) 143 mmol/L (136-145) Potassium Level 3.7 mmol/L (3.5-5.1) 4.0 mmol/L (3.5-5.1) Chloride Level 107 mmol/L (98-107) 105 mmol/L (98-107) Carbon Dioxide Level 27 mmol/L (21-32) 29 mmol/L (21-32) Anion Gap 8 (6-14) 9 (6-14) Blood Urea Nitrogen 10 mg/dL (8-26) 11 mg/dL (8-26) Creatinine 1.0 mg/dL (0.7-1.3) 1.1 mg/dL (0.7-1.3) Estimated GFR (Cockcroft-Gault) 77.0 69.0 BUN/Creatinine Ratio 10 (6-20) 10 (6-20) Glucose Level 125 mg/dL (70-99) 95 mg/dL (70-99) Calcium Level 9.4 mg/dL (8.5-10.1) 9.2 mg/dL (8.5-10.1) Total Bilirubin 0.3 mg/dL (0.2-1.0) 0.4 mg/dL (0.2-1.0) Aspartate Amino Transf (AST/SGOT) 12 U/L (15-37) 15 U/L (15-37) Alanine Aminotransferase (ALT/SGPT) 20 U/L (16-63) 23 U/L (16-63) Alkaline Phosphatase 66 U/L (46-116) 66 U/L (46-116) Total Protein 6.7 g/dL (6.4-8.2) 7.2 g/dL (6.4-8.2) Albumin 2.8 g/dL (3.4-5.0) 3.2 g/dL (3.4-5.0) Albumin/Globulin Ratio 0.7 (1.0-1.7) 0.8 (1.0-1.7) Triglycerides Level 67 mg/dL (0-150) Cholesterol Level 141 mg/dL (0-200) LDL Cholesterol, Calculated 107 mg/dL (0-100) VLDL Cholesterol, Calculated 13 mg/dL (0-40) Non-HDL Cholesterol Calculated 120 mg/dL (0-129) HDL Cholesterol 21 mg/dL (40-60) Cholesterol/HDL Ratio 6.7 Urine Opiates Screen Neg (NEG) Urine Methadone Screen Neg (NEG) Urine Barbiturates Neg (NEG) Urine Phencyclidine Screen Neg (NEG) Urine Amphetamine/Methamphetamine Neg (NEG) Urine Benzodiazepines Screen Neg (NEG) Urine Cocaine Screen Neg (NEG) Urine Cannabinoids Screen Neg (NEG) Urine Ethyl Alcohol Neg (NEG) Laboratory Tests Test 06/02/18 04:05 06/02/18 06:05 Urine Opiates Screen Neg (NEG) Urine Methadone Screen Neg (NEG) Urine Barbiturates Neg (NEG) Urine Phencyclidine Screen Neg (NEG) Urine Amphetamine/Methamphetamine Neg (NEG) Urine Benzodiazepines Screen Neg (NEG) Urine Cocaine Screen Neg (NEG) Urine Cannabinoids Screen Neg (NEG) Urine Ethyl Alcohol Neg (NEG) White Blood Count 7.3 x10^3/uL (4.0-11.0) Red Blood Count 4.48 x10^6/uL (4.30-5.70) Hemoglobin 9.3 g/dL (13.0-17.5) Hematocrit 31.1 % (39.0-53.0) Mean Corpuscular Volume 69 fL (79-100) Mean Corpuscular Hemoglobin 21 pg (25-35) Mean Corpuscular Hemoglobin Concent 30 g/dL (31-37) Red Cell Distribution Width 23.7 % (11.5-14.5) Platelet Count 470 x10^3/uL (140-400) Neutrophils (%) (Auto) 60 % (31-73) Lymphocytes (%) (Auto) 26 % (24-48) Monocytes (%) (Auto) 11 % (0-9) Eosinophils (%) (Auto) 2 % (0-3) Basophils (%) (Auto) 1 % (0-3) Neutrophils # (Auto) 4.4 x10^3uL (1.8-7.7) Lymphocytes # (Auto) 1.9 x10^3/uL (1.0-4.8) Monocytes # (Auto) 0.8 x10^3/uL (0.0-1.1) Eosinophils # (Auto) 0.2 x10^3/uL (0.0-0.7) Basophils # (Auto) 0.1 x10^3/uL (0.0-0.2) Sodium Level 143 mmol/L (136-145) Potassium Level 4.0 mmol/L (3.5-5.1) Chloride Level 105 mmol/L (98-107) Carbon Dioxide Level 29 mmol/L (21-32) Anion Gap 9 (6-14) Blood Urea Nitrogen 11 mg/dL (8-26) Creatinine 1.1 mg/dL (0.7-1.3) Estimated GFR (Cockcroft-Gault) 69.0 BUN/Creatinine Ratio 10 (6-20) Glucose Level 95 mg/dL (70-99) Calcium Level 9.2 mg/dL (8.5-10.1) Total Bilirubin 0.4 mg/dL (0.2-1.0) Aspartate Amino Transf (AST/SGOT) 15 U/L (15-37) Alanine Aminotransferase (ALT/SGPT) 23 U/L (16-63) Alkaline Phosphatase 66 U/L (46-116) Total Protein 7.2 g/dL (6.4-8.2) Albumin 3.2 g/dL (3.4-5.0) Albumin/Globulin Ratio 0.8 (1.0-1.7) Medications Current Medications Albuterol/ Ipratropium (Duoneb) 3 ml 1X ONCE NEB Last administered on at 02:03; Start 05/31/18 at 02:00; Stop 05/31/18 at 02:12; Status DC Furosemide (Lasix) 20 mg 1X ONCE IVP Last administered on 05/31/18at 03:14; Start 05/31/18 at 02:15; Stop 05/31/18 at 02:16; Status DC Aspirin (Children'S Aspirin) 324 mg 1X ONCE PO Last administered on 05/31/18at 04:26; Start 05/31/18 at 03:30; Stop 05/31/18 at 03:31; Status DC Iohexol (Omnipaque 350 Mg/ml) 90 ml 1X ONCE IV Last administered on 05/31/18at 04:08; Start 05/31/18 at 04:00; Stop 05/31/18 at 04:01; Status DC Info (CONTRAST GIVEN -- Rx MONITORING) 1 each PRN DAILY PRN MC SEE COMMENTS; Start 05/31/18 at 04:00; Stop 06/02/18 at 03:59; Status DC Ondansetron HCl (Zofran) 4 mg PRN Q8HRS PRN IV NAUSEA/VOMITING; Start 05/31/18 at 05:30; Stop 06/01/18 at 05:29; Status DC Acetaminophen (Tylenol) 650 mg PRN Q4HRS PRN PO FEVER; Start 05/31/18 at 05:30 ; Stop 06/01/18 at 05:29; Status DC Nitroglycerin (Nitrostat) 0.4 mg PRN Q5MIN PRN SL CHEST PAIN; Start 05/31/18 at 05:30; Stop 06/01/18 at 05:29; Status DC Lisinopril (Prinivil) 20 mg DAILY PO Last administered on 06/02/18at 08:59; Start 05/31/18 at 12:00 Pantoprazole Sodium (Protonix) 40 mg BIDAC PO Last administered on 06/02/18at 08 :59; Start 05/31/18 at 16:30 Furosemide (Lasix) 20 mg [id number] IVP Last administered on 06/02/18at 08:59; Start 05/31/18 at 14:00 Iron Sucrose 200 mg/Sodium Chloride 110 ml @ 55 mls/hr 1X ONCE IV Last administered on 05/31/18at 11:38; Start 05/31/18 at 12:00; Stop 05/31/18 at 13:59 ; Status DC Active Scripts Active Reported Metoprolol Tartrate 50 Mg Tablet 1 Tab PO DAILY Lisinopril 20 Mg Tablet 1 Tab PO DAILY Nexium Capsule (Esomeprazole Magnesium) 20 Mg Capsule.dr 20 Mg PO BID Hydrochlorothiazide Tablet (Hydrochlorothiazide) 12.5 Mg Tablet 12.5 Mg PO DAILY Vitals/I & O Vital Sign - Last 24 Hours 06/01/18 06/01/18 06/01/18 06/01/18 14:09 14:25 15:25 15:30 Temp 98.2 98.0 98.5 98.5 98.2 98.0 98.5 98.5 Pulse 73 73 77 62 Resp 22 B/P (MAP) 113/46 145/64 125/64 125/64 (84) Pulse Ox 97 O2 Delivery Room Air 06/01/18 06/01/18 06/01/18 06/02/18 19:50 19:50 23:00 03:08 Temp 98.3 98.2 98.1 98.3 98.2 98.1 Pulse 76 79 72 Resp 20 B/P (MAP) 126/57 (80) 118/80 (93) 140/59 (86) Pulse Ox 97 97 94 O2 Delivery Nasal Cannula Nasal Cannula Room Air Room Air O2 Flow Rate 2.0 2.0 06/02/18 06/02/18 06/02/18 06/02/18 07:00 08:00 08:59 11:00 Temp 98.1 98.5 98.1 98.5 Pulse 81 84 77 Resp 21 B/P (MAP) 139/80 (99) 139/80 127/68 (87) Pulse Ox 96 97 O2 Delivery Room Air Room Air Room Air Intake and Output 06/01/18 06/01/18 06/02/18 14:59 22:59 06:59 Intake Total 600 ml 200 ml 440 ml Output Total 900 ml 1700 ml Balance -300 ml -1500 ml 440 ml TYRONE BAY III DO Jun 02, 2018 13:47
--- NOTE | 2018-06-02 13:56 | DS ---
DATE OF DISCHARGE: 06/02/2018 ADMISSION DIAGNOSES: Congestive heart failure, chronic obstructive pulmonary disease, anemia, slight elevation of troponin. DISCHARGE DIAGNOSES: Resolving acute on chronic systolic and diastolic heart failure, resolving acute on chronic anemia, chronic obstructive pulmonary disease. CONSULTS: Cardiology and Pulmonary. PROCEDURES: None. 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 Basically, he presented with shortness of breath and weakness, was noted to be anemic with a hemoglobin of 7.4. He was admitted. We transfused him. His troponin was slightly high. There was some concern he could have had some heart failure as well as he is little short of breath. We did consult Cardiology and they agreed that he did have some mild heart failure as well. Since being diuresed, he feels better. He also got the transfusions. Hemoglobin is up to 9.3. I saw him and examined this morning, he looks wonderful. We plan to discharge with close outpatient followup. DISPOSITION: Home. ACTIVITY: As tolerated. DIET: Low sodium. MEDICATIONS: Please see the MRAD. TOTAL TIME: 37 minutes. TYRONE BAY DO DR: MANSI/samy JOB#: [id number] / [id number]
[2018-06-02 15:00] VITALS: BP 133/49
[2018-06-02 15:10] VITALS: BP 128/68
--- NOTE | 2018-06-02 16:22 | PDOC ---
CARDIO Progress Notes Date and Time Date of Service 06/02/2018 Time of Evaluation 1600 Subjective Subjective: No Chest Pain, No shortness of breath, No Palpitations Vitals Vitals Vital Signs Date Time Temp Pulse Resp B/P (MAP) Pulse Ox O2 Delivery O2 Flow Rate FiO2 06/02/18 15:00 98.4 73 18 133/49 (77) 98 Room Air 98.4 06/01/18 19:50 2.0 Weight Weight [ ] Input and Output Intake and Output Intake and Output 06/02/18 06:59 Intake Total 1240 ml Output Total 2600 ml Balance -1360 ml Intake Oral 1240 ml Output Urine Total 2600 ml # Voids 1 Laboratory Labs Laboratory Tests Test 06/01/18 18:00 06/02/18 04:05 06/02/18 06:05 Nasal Screen MRSA (PCR) Negative (Negative) Urine Opiates Screen Neg (NEG) Urine Methadone Screen Neg (NEG) Urine Barbiturates Neg (NEG) Urine Phencyclidine Screen Neg (NEG) Urine Amphetamine/Methamphetamine Neg (NEG) Urine Benzodiazepines Screen Neg (NEG) Urine Cocaine Screen Neg (NEG) Urine Cannabinoids Screen Neg (NEG) Urine Ethyl Alcohol Neg (NEG) White Blood Count 7.3 x10^3/uL (4.0-11.0) Red Blood Count 4.48 x10^6/uL (4.30-5.70) Hemoglobin 9.3 g/dL (13.0-17.5) Hematocrit 31.1 % (39.0-53.0) Mean Corpuscular Volume 69 fL (79-100) Mean Corpuscular Hemoglobin 21 pg (25-35) Mean Corpuscular Hemoglobin Concent 30 g/dL (31-37) Red Cell Distribution Width 23.7 % (11.5-14.5) Platelet Count 470 x10^3/uL (140-400) Neutrophils (%) (Auto) 60 % (31-73) Lymphocytes (%) (Auto) 26 % (24-48) Monocytes (%) (Auto) 11 % (0-9) Eosinophils (%) (Auto) 2 % (0-3) Basophils (%) (Auto) 1 % (0-3) Neutrophils # (Auto) 4.4 x10^3uL (1.8-7.7) Lymphocytes # (Auto) 1.9 x10^3/uL (1.0-4.8) Monocytes # (Auto) 0.8 x10^3/uL (0.0-1.1) Eosinophils # (Auto) 0.2 x10^3/uL (0.0-0.7) Basophils # (Auto) 0.1 x10^3/uL (0.0-0.2) Sodium Level 143 mmol/L (136-145) Potassium Level 4.0 mmol/L (3.5-5.1) Chloride Level 105 mmol/L (98-107) Carbon Dioxide Level 29 mmol/L (21-32) Anion Gap 9 (6-14) Blood Urea Nitrogen 11 mg/dL (8-26) Creatinine 1.1 mg/dL (0.7-1.3) Estimated GFR (Cockcroft-Gault) 69.0 BUN/Creatinine Ratio 10 (6-20) Glucose Level 95 mg/dL (70-99) Calcium Level 9.2 mg/dL (8.5-10.1) Total Bilirubin 0.4 mg/dL (0.2-1.0) Aspartate Amino Transf (AST/SGOT) 15 U/L (15-37) Alanine Aminotransferase (ALT/SGPT) 23 U/L (16-63) Alkaline Phosphatase 66 U/L (46-116) Total Protein 7.2 g/dL (6.4-8.2) Albumin 3.2 g/dL (3.4-5.0) Albumin/Globulin Ratio 0.8 (1.0-1.7) Physical Exam HEENT: Neck Supple W Full Motion Chest: Symmetric LUNGS: Clear to Auscultation Heart: S1S2, RRR (SR) Abdomen: Soft N/T Extremities: No Calf Tenderness Neurology: alert, oriented, follow commands Assessment Assessment 1. Acute on chronic diastolic CHF: compensated. EF and WM nml 2. Anemia: Fe deficiency, S/P transfusion 3. COPD with tobaccoism 4. Elevated troponin: peaked at 0.09 likely demand mediated with CHF and anemia 5. HTN: controlled Recommendations 1. ECASA 81 mg if OK with GI. 2. Lisinopril, HCTZ. Lipitor. 3. Pt going back to [place] and discussed that he will need an outpt stress test and told me that he already has a cardiology appointment over there. 4. Smoking cessation. 5. Will need to clarify dose of Metoprolol, may need to stop or decrease for now depending on the dose with bradycardic episodes BENJAMIN MAXWELL APRN Jun 02, 2018 16:22
[2018-06-02] MEDS ORDERED: DOXY100C2 PO (16:32)
[2018-06-02] MEDS ORDERED: ALBU2.5V8 INH (16:32)
[2018-06-02] MEDS ORDERED: LISI10TA2 PO (16:33)
[2018-06-02] MEDS ORDERED: ATOR10TA PO (16:33)
--- NOTE | 2018-06-02 18:10 | NUR ---
Discharge Note: RIGOBERTO MCELROY [facility] Discharge instructions and discharge home medications reviewed with Patient and a copy given. All questions have been answered and understanding verbalized. The following instructions and handouts were given: Diet, activity, medication list and follow up instructions provided to patient. Discontinued lines and drains: Peripheral IV discontinued and catheter intact. Patient discharged to Home or Self Care with Self via Ambulated
[2018-06-02] MEDS ORDERED: ATORVASTATIN CALCIUM 10 MG TABLET. PO SCH (21:00)
== END 2018-06-02 17:15 | disposition home or self-care (01) | DRG 291 ==
LOC: ER 01:42 → 1 WEST ICU 05:36
PROVIDERS: ADMIT Internal Medicine; ATTEND Internal Medicine
PROC: 30233N1 Transfusion of Nonautologous Red Blood Cells into Peripheral Vein, Percutaneous Approach (ICD-10-PCS; principal; 2018-05-31)
DX: I11.0 Hypertensive heart disease with heart failure (principal); J96.00 Acute respiratory failure, unspecified whether with hypoxia or hypercapnia; J44.1 Chronic obstructive pulmonary disease with (acute) exacerbation; I50.43 Acute on chronic combined systolic (congestive) and diastolic (congestive) heart failure; D50.9 Iron deficiency anemia, unspecified; F17.210 Nicotine dependence, cigarettes, uncomplicated; K44.9 Diaphragmatic hernia without obstruction or gangrene; Z82.49 Family history of ischemic heart disease and other diseases of the circulatory system; Z95.1 Presence of aortocoronary bypass graft
CPT/HCPCS: 36415; 71045; 71275; 80053; 80061; 80307; 82274; 82607; 82728; 83036; 83540; 83550; 83615; 83880; 84443; 84484; 85025; 85045; 85379; 85610; 86850; 86900; 86901; 86920; 87641; 93005; 93306; 94640; 96374; 99406; J1756; J1940; J7620; P9016; Q9967; 99285-25; G0378